=== PATIENT | female | born 1975 | race Caucasian/White ===

== ENCOUNTER 2017-07-08 11:15 | Outpatient (RCR) | payer SELFPAY ==
--- NOTE | 2017-04-15 10:38 | PT INITIAL EVALUATION ---
MEDICAL DIAGNOSIS: Right Breast Cancer TREATMENT DIAGNOSIS: Right Breast Cancer DATE OF ONSET: 02/19/17 SUBJECTIVE: Nahum is a 41 year old female presenting with a recent diagnosis of multifocal invasive ductal carcinoma of the right breast, ER/AL positive. Pt is to start chemotherapy treatment today consisting of 4 rounds of Doxorubicin, Cytoxan and Neulasta which will take place every other week and then progress to weekly Taxol treatment. Pt lives in [place], [place] and will be traveling for treatment. Patient is single, recently . She has children ages 24, 21, and 8. 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 Currently pt is very active and works out regularly and has no complaints of pain or fatigue other than slight tightness surrounding recent port placement on 04/09/17. Pt is accompanied by her mother throughout evaluation , nurse practitioner and social work are also present for patient education. REHAB PROBLEM LIST: Increased Pain Decreased ROM Decreased Function Decreased ADL's Decreased Mobility PREVIOUS MEDICAL HISTORY: See EMR OBJECTIVE: ROM: UE ROM: Full with stiffness in L shoulder flexion end range secondary to recent port placement. Strength: UE MMT B: 5/5 in all major muscle groups 3 Finger Pinch Tip Mender: L 18#, R 20# Sensation: No reports of numbness or tingling, sensation intact to light touch. Special Tests: ECOG Performance Status: Grade 0 FACT-G Scores: 04/15/17 Eval: PWB: 28/28, SWB: 22/, EWB: , FWB:, Total Score: 88/108. ASSESSMENT: Pt shows signs and symptoms consistent with her recent diagnosis with minimal limitations secondary to recent port placement in ROM and stiffness. Physical therapy is indicated for this patient to maintain functional status throughout treatment to decrease side effects of ongoing oncological intervention and monitor for any change in status. Short Term Goals In 3 months pt will maintain FACT-G score of greater than 80/108 indicating maintenance of functional well-being. In 3 months pt will maintain ECOG performance status of 0 indicating maintenance of function and activity level. In 3 months pt will maintain UE ROM and strength to full ROM and MMT >4/5 for maintenance of functional status for performance of ADL's. In 6 months pt will maintain FACT-G score of greater than 80/108 indicating maintenance of functional well-being. In 6 months pt will maintain ECOG performance status of 0 indicating maintenance of function and activity level. In 6 months pt will maintain UE ROM and strength to full ROM and MMT >4/5 for maintenance of functional status for performance of ADL's. Patient's Goals Maintain function with ongoing oncological treatment PLAN: Patient to be seen for Manual Therapy/STM/MET Strengthening/condition Ice/Heat Range of Motion Spinal Stabilization Ultrasound Stretching Iontophoresis Neuromuscular Re-ed Closed Chain Program Electrical Stim Posture/Body mechanics Gait Trg/Balance Trg Biofeedback Home Exercise Program [facility]Manual Traction Therapeutic Activities Pelvic Floor 1/MO for 6 Months If you have any questions, comments, or concerns about this report or plan, please contact me at . Thank you, Starla Hale, PT, DPT, CLT MTDD
--- NOTE | 2017-05-13 18:12 | PT PLAN OF CARE ---
Physician: JUAN Mccracken Patient is being seen: 1x/MO Therapist: Starla Hale, PT, DPT, CLT Medical Diagnosis: Right Breast Cancer Treatment Diagnosis: Right Breast Cancer Date of Onset: 02/19/17 Date of Initial Evaluation: 04/15/17 Date patient was last seen: 05/13/17 Number of treatments: 2 Number of cancellations/No shows: 0 INTERVENTIONS: Manual Therapy/STM/MET Strengthening/condition Ice/Heat Range of Motion Spinal Stabilization Ultrasound Stretching Iontophoresis Neuromuscular Re-ed Closed Chain Program Electrical Stim Posture/Body mechanics Gait Trg/Balance Trg Biofeedback Home Exercise Program Mech./Manual Traction Therapeutic Activities Pelvic Floor GOALS: In 3 months pt will maintain FACT-G score of greater than 80/108 indicating maintenance of functional well-being. In 3 months pt will maintain ECOG performance status of 0 indicating maintenance of function and activity level. In 3 months pt will maintain UE ROM and strength to full ROM and MMT >4/5 for maintenance of functional status for performance of ADL's. In 6 months pt will maintain FACT-G score of greater than 80/108 indicating maintenance of functional well-being. In 6 months pt will maintain ECOG performance status of 0 indicating maintenance of function and activity level. In 6 months pt will maintain UE ROM and strength to full ROM and MMT >4/5 for maintenance of functional status for performance of ADL's. PATIENT'S GOAL: Maintain function with ongoing oncological treatment Status of Patient's Goals: In Progress Patient Compliance: Good Prognosis: Good Reasons for continuing therapy: Pt shows good maintenance of condition with oncological treatment. Occasional lower cervical/upper thoracic pain is present secondary likely to decreased postural support. Pt showed improvements following cervical stretches and scapular squeezes. If pain persists pt to be further evaluated. Otherwise pt shows improved general well-being with side- effects including only decreased sleep as well as nausea. ROM: UE ROM: Full with stiffness in L shoulder flexion end range secondary to recent port placement. Strength: UE MMT B: 5/5 in all major muscle groups 3 Finger Pinch Cable Former: L 18#, R 20# Special Tests: ECOG Performance Status: Grade 0 FACT-G Scores: 04/15/17 Eval: PWB: 28/28, SWB: 22/, EWB: 18, FWB:20, Total Score: 88/108. FACT- G Scores: 05/13/17: PWB: , SWB: , EWB: , FWB:, Total Score: 90/108. If you have any questions or concerns, please feel free to contact me at . Thank you, Starla Hale, PT, DPT, CLT MTDD
--- NOTE | 2017-06-10 11:53 | PT PLAN OF CARE ---
Physician: JUAN Mccracken Patient is being seen: 1x/MO Therapist: Starla Hale, PT, DPT, CLT Medical Diagnosis: Right Breast Cancer Treatment Diagnosis: Right Breast Cancer Date of Onset: 02/19/17 Date of Initial Evaluation: 04/15/17 Date patient was last seen: 06/10/17 Number of treatments: 3 Number of cancellations/No shows: 0 INTERVENTIONS: Manual Therapy/STM/MET Strengthening/condition Ice/Heat Range of Motion Spinal Stabilization Ultrasound Stretching Iontophoresis Neuromuscular Re-ed Closed Chain Program Electrical Stim Posture/Body mechanics Gait Trg/Balance Trg Biofeedback Home Exercise Program Mech./Manual Traction Therapeutic Activities Pelvic Floor GOALS: In 3 months pt will maintain FACT-G score of greater than 80/108 indicating maintenance of functional well-being. MET In 3 months pt will maintain ECOG performance status of 0 indicating maintenance of function and activity level. MET In 3 months pt will maintain UE ROM and strength to full ROM and MMT >4/5 for maintenance of functional status for performance of ADL's. In 6 months pt will maintain FACT-G score of greater than 80/108 indicating maintenance of functional well-being. In 6 months pt will maintain ECOG performance status of 0 indicating maintenance of function and activity level. In 6 months pt will maintain UE ROM and strength to full ROM and MMT >4/5 for maintenance of functional status for performance of ADL's. PATIENT'S GOAL: Maintain function with ongoing oncological treatment Status of Patient's Goals: In Progress Patient Compliance: Good Prognosis: Good Reasons for continuing therapy: Pt shows good maintenance of function with ongoing oncological treatment with minimal side-effects and good activity level. Pt started on preventative neuropathy HEP with initiation of Taxol chemo drug to counteract side-effects. Pt to continue with current level of exercise and be re-evaluated in 1 MO. ROM: UE ROM: Full with stiffness in L shoulder flexion end range secondary to recent port placement. Strength: UE MMT B: 5/5 in all major muscle groups 3 Finger Pinch C[employer] Boat [employer] Barge Loader: L 18#, R 20# Special Tests: ECOG Performance Status: Grade 0 FACT-G Scores: 04/15/17 Eval: PWB: 28, SWB: , EWB: 18, FWB:, Total Score: 88/108. FACT- G Scores: 05/13/17: PWB: , SWB: , EWB: , FWB:, Total Score: 90/108. FACT- G Scores: 06/10/17: PWB: , SWB: , EWB: , FWB:, Total Score: 86/108. If you have any questions or concerns, please feel free to contact me at . Thank you, Starla Hale, PT, DPT, CLT MTDD
[~2017-07-08 11:15] MED LIST: DEX4 PO; DOCU-416 PO; OXYC-865 PO; POLY17PO25 PO; PROC10TA4 PO
--- NOTE | 2017-07-09 08:52 | PT PLAN OF CARE ---
Physician: JUAN Mccracken Patient is being seen: 1x/MO Therapist: Starla Hale, PT, DPT, CLT Medical Diagnosis: Right Breast Cancer Treatment Diagnosis: Right Breast Cancer Date of Onset: 02/19/17 Date of Initial Evaluation: 04/15/17 Date patient was last seen: 07/08/17 Number of treatments: 4 Number of cancellations/No shows: 0 INTERVENTIONS: Manual Therapy/STM/MET Strengthening/condition Ice/Heat Range of Motion Spinal Stabilization Ultrasound Stretching Iontophoresis Neuromuscular Re-ed Closed Chain Program Electrical Stim Posture/Body mechanics Gait Trg/Balance Trg Biofeedback Home Exercise Program Mech./Manual Traction Therapeutic Activities Pelvic Floor GOALS: In 3 months pt will maintain FACT-G score of greater than 80/108 indicating maintenance of functional well-being. MET In 3 months pt will maintain ECOG performance status of 0 indicating maintenance of function and activity level. MET In 3 months pt will maintain UE ROM and strength to full ROM and MMT >4/5 for maintenance of functional status for performance of ADL's. MET In 6 months pt will maintain FACT-G score of greater than 80/108 indicating maintenance of functional well-being. In 6 months pt will maintain ECOG performance status of 0 indicating maintenance of function and activity level. In 6 months pt will maintain UE ROM and strength to full ROM and MMT >4/5 for maintenance of functional status for performance of ADL's. PATIENT'S GOAL: Maintain function with ongoing oncological treatment Status of Patient's Goals: In Progress Patient Compliance: Good Prognosis: Good Reasons for continuing therapy: Pt shows exceptional decrease in both social well-being scores warranting referral to social work for management of social support as well as to MD for education concerning anxiety about upcoming mastectomy. Functionally pt shows improvements with decreased neuropathy to only occasional sensation disturbances in the R hand. Pt has decreased pinch hydraulic tester strength but results could be skewed secondary to pt recently taking Benadryl medication and was drowsy. ROM: UE ROM: Full with stiffness in L shoulder flexion end range secondary to recent port placement. Strength: UE MMT B: 5/5 in all major muscle groups 3 Finger Pinch Managed Services Consultant: EVAL: L 18#, R 20#, 07/08/17: R 15#, 16# Special Tests: ECOG Performance Status: Grade 0 FACT-G Scores: 04/15/17 Eval: PWB: 28/28, SWB: , EWB: , FWB:, Total Score: 88/108. FACT- G Scores: 05/13/17: PWB: /, SWB: , EWB: , FWB:, Total Score: 90/108. FACT- G Scores: 06/10/17: PWB: , SWB: , EWB: , FWB:, Total Score: 86/108. FACT-G Scores: 07/08/17: PWB: /, SWB: , EWB: , FWB:, Total Score: 78/108. If you have any questions or concerns, please feel free to contact me at [phone]. Thank you, Starla Hale, PT, DPT, CLT HUGOD
== END 2017-07-14 ==
LOC: PT 11:15
PROVIDERS: ATTEND Nurse Practitioner Family
DX: D05.11 Intraductal carcinoma in situ of right breast (principal); Z17.0 Estrogen receptor positive status [ER+]
CPT/HCPCS: 97161

== ENCOUNTER 2017-07-29 10:45 | Outpatient (RCR) | payer BC, MEDICAID ==
--- NOTE | 2017-07-29 15:23 | PT PLAN OF CARE ---
Physician: JUAN Mccracken Patient is being seen: 2x/MO Therapist: Starla Hale, PT, DPT, CLT Medical Diagnosis: Right Breast Cancer Treatment Diagnosis: Right Breast Cancer Date of Onset: 02/19/17 Date of Initial Evaluation: 04/15/17 Date patient was last seen: 07/29/17 Number of treatments: 5 Number of cancellations/No shows: 0 INTERVENTIONS: Manual Therapy/STM/MET Strengthening/condition Ice/Heat Range of Motion Spinal Stabilization Ultrasound Stretching Iontophoresis Neuromuscular Re-ed Closed Chain Program Electrical Stim Posture/Body mechanics Gait Trg/Balance Trg Biofeedback Home Exercise Program Mech./Manual Traction Therapeutic Activities Pelvic Floor GOALS: In 3 months pt will maintain FACT-G score of greater than 80/108 indicating maintenance of functional well-being. MET In 3 months pt will maintain ECOG performance status of 0 indicating maintenance of function and activity level. MET In 3 months pt will maintain UE ROM and strength to full ROM and MMT >4/5 for maintenance of functional status for performance of ADL's. MET In 6 months pt will maintain FACT-G score of greater than 80/108 indicating maintenance of functional well-being. In 6 months pt will maintain ECOG performance status of 0 indicating maintenance of function and activity level. In 6 months pt will maintain UE ROM and strength to full ROM and MMT >4/5 for maintenance of functional status for performance of ADL's. PATIENT'S GOAL: Maintain function with ongoing oncological treatment Status of Patient's Goals: In Progress Patient Compliance: Good Prognosis: Good Reasons for continuing therapy: Pt has LUQ abdominal pain with rebound tenderness with palpation. Nurse practitioner notified and is already seeking course of action. Otherwise pt shows good maintenance of physical condition and is staying active with functional and occupational activities. Pt has no pain other than abdominal at this time and is managing fatigue. ROM: UE ROM: Full with stiffness in L shoulder flexion end range secondary to recent port placement. Strength: UE MMT B: 5/5 in all major muscle groups 3 Finger Pinch Access Tech: EVAL: L 18#, R 20#, 07/08/17: R 15#, 16# Special Tests: ECOG Performance Status: Grade 0 FACT-G Scores: 04/15/17 Eval: PWB: , SWB: , EWB: , FWB:, Total Score: 88/108. FACT- G Scores: 05/13/17: PWB: 26/28, SWB: 23/, EWB: , FWB:, Total Score: 90/108. FACT- G Scores: 06/10/17: PWB: 21/28, SWB: 26/, EWB: , FWB:, Total Score: 86/108. FACT-G Scores: 07/08/17: PWB: 22/28, SWB: 16, EWB: , FWB:, Total Score: 78/108. If you have any questions or concerns, please feel free to contact me at . Thank you, Starla Hale, PT, DPT, CLT HUGOD
[2017-08-19] MEDS ORDERED: ACET500T68 PO (11:20)
--- NOTE | 2017-08-20 09:23 | PT PLAN OF CARE ---
Physician: JUAN Mccracken Patient is being seen: 1-2x/MO Therapist: Starla Hale, PT, DPT, CLT Medical Diagnosis: Right Breast Cancer Treatment Diagnosis: Right Breast Cancer Date of Onset: 02/19/17 Date of Initial Evaluation: 04/15/17 Date patient was last seen: 08/19/17 Number of treatments: 6 Number of cancellations/No shows: 0 INTERVENTIONS: Manual Therapy/STM/MET Strengthening/condition Ice/Heat Range of Motion Spinal Stabilization Ultrasound Stretching Iontophoresis Neuromuscular Re-ed Closed Chain Program Electrical Stim Posture/Body mechanics Gait Trg/Balance Trg Biofeedback Home Exercise Program Mech./Manual Traction Therapeutic Activities Pelvic Floor GOALS: In 3 months pt will maintain FACT-G score of greater than 80/108 indicating maintenance of functional well-being. MET In 3 months pt will maintain ECOG performance status of 0 indicating maintenance of function and activity level. MET In 3 months pt will maintain UE ROM and strength to full ROM and MMT >4/5 for maintenance of functional status for performance of ADL's. MET In 6 months pt will maintain FACT-G score of greater than 80/108 indicating maintenance of functional well-being. In 6 months pt will maintain ECOG performance status of 0 indicating maintenance of function and activity level. In 6 months pt will maintain UE ROM and strength to full ROM and MMT >4/5 for maintenance of functional status for performance of ADL's. PATIENT'S GOAL: Maintain function with ongoing oncological treatment Status of Patient's Goals: In Progress Patient Compliance: Good Prognosis: Good Reasons for continuing therapy: Nahum reports decreased LUQ pain and think it is likely indigestion. Otherwise, pt shows good maintenance of status. Pt is still working, but reports fatigue and generalized weakness with ADL's. Next chemo round it to be her last and re-measurements of ROM will be made as well as further radiation and surgical education to be provided prior to a shift in treatment intervention. ROM: UE ROM: Full with stiffness in L shoulder flexion end range secondary to recent port placement. Strength: UE MMT B: 5/5 in all major muscle groups 3 Finger Pinch Clinical Professor: EVAL: L 18#, R 20#, 07/08/17: R 15#, 16# Special Tests: ECOG Performance Status: Grade 0 FACT-G Scores: 04/15/17 Eval: PWB: 28/28, SWB: , EWB: , FWB:, Total Score: 88/108. FACT- G Scores: 05/13/17: PWB: /28, SWB: , EWB: , FWB:, Total Score: 90/108. FACT- G Scores: 06/10/17: PWB: , SWB: , EWB: , FWB:, Total Score: 86/108. FACT-G Scores: 07/08/17: PWB: , SWB: , EWB: , FWB:, Total Score: 78/108. FACT-G Scores: 08/19/17: PWB: , SWB: , EWB: , FWB:, Total Score: 78/108. If you have any questions or concerns, please feel free to contact me at [phone]. Thank you, Starla Hale, PT, DPT, CLT MTDD
[2017-08-26] MEDS ORDERED: CEPH500T7 PO (11:37)
[2017-09-09] MEDS ORDERED: LIDO15CR8 TOP (14:18)
[2017-09-14] MEDS ORDERED: GUAI1TAB25 PO (08:30)
[2017-09-18] MEDS ORDERED: PER PO (08:38)
[2017-09-18] MEDS ORDERED: DOCU-202 PO (08:38)
[2017-10-28] MEDS ORDERED: ACET-1966 PO (12:57)
== END 2017-10-27 ==
LOC: PT 10:45
PROVIDERS: ATTEND Internal Medicine Hematology
DX: C50.911 Malignant neoplasm of unspecified site of right female breast (principal); R10.12 Left upper quadrant pain; R53.83 Other fatigue

== ENCOUNTER 2017-08-26 10:01 | Outpatient (RCR) | payer MEDICAID ==
[2017-06-17] MEDS: diphenhydrAMINE 50 MG/ML VIAL IVP PRN (10:08)
[2017-06-17] MEDS: DEXAMETHASONE SOD PHOS 10MG/ML IVP PRN ×2 (10:08→10:12)
[2017-06-17] MEDS: LIDOCAINE/SOD BICARB 8.4% SYR ID PRN (10:10)
[2017-06-17] MEDS: NS(*) 0.9% 500 ML BAG 500 ML IV PRN (10:12)
[2017-06-17] MEDS: FAMOTIDINE 10 MG/ML SDV IVP PRN (10:42)
--- NOTE | 2017-06-17 11:50 | ONC Progress Note - NP.Halsey ---
Patient History Date of Service Jun 17, 2017 Reason For Visit/HPI Patient is seen in the clinic today for cycle 2 of Taxol out of 12 weekly treatments. Patient reports that she had some mild skin reaction on her hands bilaterally post a 1st treatment with a redness and irritation over the thumb. This also felt warm. This resolved after about 2 days. She denies any numbness or tingling. She is currently on vitamin B6 100 mg twice a day. She denied any nausea or vomiting, diarrhea or constipation. Problem List (1) Breast cancer, right Oncology History 1. 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 a. Initial breast imaging in [place], [place] for palpable lump in right breast. b. Bilateral diagnostic mammogram and whole right breast ultrasound performed on February 19. Mammogram shows scattered fibroglandular tissue in multiple groups of suspicious microcalcifications involving the entire upper/outer quadrant of the right breast. Ultrasound of the right breast reveals, amongst other findings, a lobular, solid, vascular mass measuring about 4 cm from the nipple with multiple punctate echogenic foci consistent with calcifications. This finding was highly suspicious for malignancy. Also, 3 cm from the nipple at 10 o'clock there was a complex solid nodule. At 11 o'clock, about 1 cm from the nipple there was a lobular vascular oval mass. c. March 01: Breast MRI reveals areas of ductal enhancement consistent with adenosis of the left breast as well as multiple benign cystic lesions. There was extensive involvement of the right breast from approximately 8 to 11 o' clock with suspicious enhancement highly suggestive of diffuse malignancy. This area extended from the chest wall to the retroareolar region. There was no evidence of adenopathy in the axillary regions. There was contrast enhancement extending to the chest wall, but no definitive chest wall invasion as detected. d. February 27: Patient subsequently undergoes biopsies of two separate areas of the right breast. First biopsy consistent with invasive ductal carcinoma, moderately or poorly differentiated (grade 3/3), 3 mm in greatest dimension with extensive intermediate grade DCIS, solid type with necrosis and microcalcification. 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 e. March 23: Bone scan reveals relatively diffuse sternal and manubrial localization that is likely reactive or inflammatory in nature; no definite osseous metastatic pattern. f. February 20: CT scan of chest, abdomen and pelvis reveals at least four noncalcified pulmonary nodules seen in the lungs, with largest measuring 6 mm in diameter. Possible noncalcified granulomas; there are small calcified mediastinal lymph nodes. Right breast masses were noted consistent with her history of breast cancer. 8 mm round hypoattenuating lesion in the medial segment of the left lobe of the liver which is too small to characterize. Sclerosis along left-sided L5 vertebral body which could be degenerative, as a mildly bulging disk was present at this level. Adriamycin and Cytoxan started on 04/15/2017 and completed on 05/27/2017 4 scheduled cycles. Weekly Taxol therapy 12 started on 06/10/2017 followed by surgery and possibly radiation therapy. BRCA1 and 2 genetic testing was completed and was negative. Psychosocial History Social History Patient is single but has a significant other. She has 1 daughter who has a child and a son who is an elementary school Occupational History She works at a local [employer] Alcohol History She denies abuse Smoking History: No Smoking Status: Never Smoker Exposure to Second Hand Smoke?: No Medications and Allergies Active Scripts Dexamethasone 4 Mg Tab (DEXAMETHASONE 4 MG TAB) 4 Mg Tab, 8 MG PO DAILY for Nausea for 3 Days, #6 TAB 3 Refills take 8mg on days 2-4 post each cycle of chemotherapy every 2 weeks Prov:TRAVON WHITE INSPECTOR W[employer] ROPE-BC, ONC 04/15/17 Prochlorperazine Maleate (Compazine) 10 Mg Tablet, 10 MG PO Q6H for Nausea, #15 TAB 1 Refill Prov:TRAVON WHITE INSPECTOR [employer]BC, ONC 04/15/17 Docusate Sodium (COLACE) 100 Mg Capsule, 1 CAP PO BID, #30 CAP 0 Refills TAKE WITH A FULL GLASS OF WATER Prov:JOHANNE ARRIAGA MD 04/09/17 Oxycodone Hcl/Acetaminophen (PERCOCET 5-325 MG TABLET) 1 Each Tablet, 1-2 TAB PO Q4H Y for PAIN, #20 TAB 0 Refills Prov:JOHANNE ARRIAGA MD 04/09/17 Allergies: Coded Allergies: No Known Drug Allergies (Unverified , 04/08/17) Review of System/Physical Exam Review of Systems All Systems Reviewed/Normal: Yes, Except as Noted Constitutional: Positive for Other (hair loss) Hematologic: Positive for Fatigue Skin: Positive for Erythema (of the thumbs bilaterally), Positive for Dry Skin Physical Exam Vital Signs Temperature: 98.6 Pulse: 53 BP Systolic: 120 BP Diastolic: 72 Respiratory Rate: 16 O2 SAT: 97 O2 Delivery: Height (inches) 64.00 Weight lb: Weight oz: Weight Kg (Antonino): Pain: 0 ECOG Score: 0 General: Stable, Well Developed, Well Nourished, Not In Acute Distress Neck: Supple Lungs: Clear to Auscultation Heart: Regular Rate, Regular Rhythm, No Gallops Abdomen: Soft and Nontender, No Hepatosplenomegaly Extremities: No Cyanosis, No Clubbing, No Edema Lymphadenopathy: No Cervical Psychiatric: Mood appears normal, Affect appears normal Skin: Mild Erythema (bilateral thumbs with dryness of the skin, no signs or symptoms of infection, no nail changes) Diagnostic Studies Diagnostic Studies Laboratory Labs were drawn in [place] and reviewed today with nursing staff. No concerns today Assessment and Plan Assessment & Plan Patient is seen today for her multifocal high grade ER/NM positive invasive ductal carcinoma of the right breast. She completed cycle 4 today of Adriamycin and Cytoxan out of 4 scheduled cycles. Cycle 2 of weekly Taxol therapy today. Patient then will complete surgery and possibly radiation therapy. Patient is tolerating treatment with out difficulty. She did experience mild erythema over the thumbs bilaterally with dry skin. This is resolving. Patient will follow every cycle with the provider. She is having labs completed in [place] and they are faxed to us for review. These include CBC and a CMP. Patient had BRCA1 and 2 genetic testing completed, results were reviewed with patient which were negative. Patient will contact us if she has questions or concerns. Cycle 2 day 1 of single agent Taxol today. Patient will return in one week for cycle 3. I personally spent a total of 20 minutes. Of that 15 minutes was counseling/ coordination of patient's care. See my note above for details. TRAVON WHITE INSPECTOR [employer]-BC, ONC Jun 17, 2017 11:50
[2017-06-17] MEDS: HEPARIN FLSH (PORT) 500 UN/5ML IVP PRN (12:41)
[2017-06-24] MEDS: DEXAMETHASONE SOD PHOS 10MG/ML IVP PRN (10:41)
[2017-06-24] MEDS: diphenhydrAMINE 50 MG/ML VIAL IVP PRN (10:41)
[2017-06-24] MEDS: FAMOTIDINE 10 MG/ML SDV IVP PRN (10:42)
[2017-06-24] MEDS: LIDOCAINE/SOD BICARB 8.4% SYR ID PRN (11:24)
[2017-06-24 12:40] VITALS: BP 118/75
--- NOTE | 2017-06-24 13:14 | ONC Progress Note - NP.Halsey ---
Patient History Date of Service Jun 24, 2017 Reason For Visit/HPI Patient is seen in the clinic today for cycle 3 of Taxol out of 12 weekly treatments. Her skin reaction on her hands bilaterally is improved with the use of lotion. She denies numbness or tingling. No nausea or vomiting. Occasional diarrhea x 1 day with resolution. Fatigue is stable. She has one sore on her lip which is healing. Her daughter and granddaughter are with her today. She would like to see for a wig. Oncology History 1. Multifocal invasive ductal carcinoma of the right breast, ER/DE positive. a. Initial breast imaging in [place], [place] for palpable lump in right breast. b. Bilateral diagnostic mammogram and whole right breast ultrasound performed on February 19. Mammogram shows scattered fibroglandular tissue in multiple groups of suspicious microcalcifications involving the entire upper/outer quadrant of the right breast. Ultrasound of the right breast reveals, amongst other findings, a lobular, solid, vascular mass measuring about 4 cm from the nipple with multiple punctate echogenic foci consistent with calcifications. This finding was highly suspicious for malignancy. Also, 3 cm from the nipple at 10 o'clock there was a complex solid nodule. At 11 o'clock, about 1 cm from the nipple there was a lobular vascular oval mass. c. March 01: Breast MRI reveals areas of ductal enhancement consistent with adenosis of the left breast as well as multiple benign cystic lesions. There was extensive involvement of the right breast from approximately 8 to 11 o' clock with suspicious enhancement highly suggestive of diffuse malignancy. This area extended from the chest wall to the retroareolar region. There was no evidence of adenopathy in the axillary regions. There was contrast enhancement extending to the chest wall, but no definitive chest wall invasion as detected. d. February 27: Patient subsequently undergoes biopsies of two separate areas of the right breast. First biopsy consistent with invasive ductal carcinoma, moderately or poorly differentiated (grade 3/3), 3 mm in greatest dimension with extensive intermediate grade DCIS, solid type with necrosis and microcalcification. 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 e. March 23: Bone scan reveals relatively diffuse sternal and manubrial localization that is likely reactive or inflammatory in nature; no definite osseous metastatic pattern. f. February 20: CT scan of chest, abdomen and pelvis reveals at least four noncalcified pulmonary nodules seen in the lungs, with largest measuring 6 mm in diameter. Possible noncalcified granulomas; there are small calcified mediastinal lymph nodes. Right breast masses were noted consistent with her history of breast cancer. 8 mm round hypoattenuating lesion in the medial segment of the left lobe of the liver which is too small to characterize. Sclerosis along left-sided L5 vertebral body which could be degenerative, as a mildly bulging disk was present at this level. Adriamycin and Cytoxan started on 04/15/2017 and completed on 05/27/2017 4 scheduled cycles. Weekly Taxol therapy 12 started on 06/10/2017 followed by surgery and possibly radiation therapy. BRCA1 and 2 genetic testing was completed and was negative. Psychosocial History Social History Patient is single but has a significant other. She has 1 daughter who has a child and a son who is an elementary school Occupational History She works at a local [employer] Alcohol History She denies abuse Smoking History: No Smoking Status: Never Smoker Exposure to Second Hand Smoke?: No Medications and Allergies Active Scripts Dexamethasone 4 Mg Tab (DEXAMETHASONE 4 MG TAB) 4 Mg Tab, 8 MG PO DAILY for Nausea for 3 Days, #6 TAB 3 Refills take 8mg on days 2-4 post each cycle of chemotherapy every 2 weeks Prov:TRAVON WHITE DEGREASER-BC, ONC 04/15/17 Prochlorperazine Maleate (Compazine) 10 Mg Tablet, 10 MG PO Q6H for Nausea, #15 TAB 1 Refill Prov:TRAVON WHITE DEGREASER-BC, ONC 04/15/17 Docusate Sodium (COLACE) 100 Mg Capsule, 1 CAP PO BID, #30 CAP 0 Refills TAKE WITH A FULL GLASS OF WATER Prov:JOHANNE ARRIAGA MD 04/09/17 Oxycodone Hcl/Acetaminophen (PERCOCET 5-325 MG TABLET) 1 Each Tablet, 1-2 TAB PO Q4H Y for PAIN, #20 TAB 0 Refills Prov:JOHANNE ARRIAGA MD 04/09/17 Allergies: Coded Allergies: No Known Drug Allergies (Unverified , 04/08/17) Review of System/Physical Exam Review of Systems All Systems Reviewed/Normal: Yes, Except as Noted Hematologic: Positive for Fatigue Skin: Positive for Erythema (of the thumbs bilaterally improved), Positive for Dry Skin (using lotion with improvement) Physical Exam Vital Signs Temperature: 97.9 Pulse: 75 BP Systolic: 118 BP Diastolic: 75 Respiratory Rate: 16 O2 SAT: 96 O2 Delivery: Height (inches) 64.00 Weight lb: Weight oz: Weight Kg (Antonino): Pain: 0 ECOG Score: 0 General: Well Developed, Well Nourished, Not In Acute Distress HEENT: No Trauma, No Conjunctivitis, No Icterus, No Mucositis, No Oral Thrush, Other (scam on lower lip) Neck: Supple Lungs: Clear to Auscultation Heart: Regular Rate, Regular Rhythm, No Gallops Abdomen: Soft and Nontender, No Hepatosplenomegaly, No Masses Extremities: No Cyanosis, No Clubbing, No Edema Lymphadenopathy: No Cervical Psychiatric: Mood appears normal, Affect appears normal Skin: No Skin Rashes, No Bruising, Mild Erythema (bilateral thumbs with dryness of the skin, no signs or symptoms of infection, no nail changes) Diagnostic Studies Diagnostic Studies Laboratory Labs reviewed yesterday and within limits for treatment.- See SPU chart Assessment and Plan Assessment & Plan Patient is seen today for her multifocal high grade ER/DE positive invasive ductal carcinoma of the right breast. She completed cycle 4 today of Adriamycin and Cytoxan out of 4 scheduled cycles. Cycle 3 of weekly Taxol therapy today. Patient then will complete surgery and possibly radiation therapy. Patient is tolerating treatment with out difficulty. She did experience mild erythema over the thumbs bilaterally with dry skin and has improvement with lotion use. Patient will follow every cycle with the provider. She is having labs completed in [place] and they are faxed to us for review. These include CBC and a CMP. Patient had BRCA1 and 2 genetic testing completed, results were reviewed with patient which were negative. PLAN: Patient will contact us if she has questions or concerns. Cycle 3 day 1 of single agent Taxol today. Patient will return in one week for cycle 4. I personally spent a total of 20 minutes. Of that 15 minutes was counseling/ coordination of patient's care. See my note above for details. TRAVON WHITE DEGREASER-BC, ONC Jun 24, 2017 13:14
[2017-06-24] MEDS: NS(*) 0.9% 500 ML BAG 500 ML IV PRN (15:55)
[2017-06-24] MEDS: HEPARIN FLSH (PORT) 500 UN/5ML IVP PRN (15:56)
[2017-07-01] MEDS: NS(*) 0.9% 500 ML BAG 500 ML IV PRN (10:21)
[2017-07-01] MEDS: LIDOCAINE/SOD BICARB 8.4% SYR ID PRN (10:21)
[2017-07-01 10:22] VITALS: BP 121/62
[2017-07-01] MEDS: FAMOTIDINE 10 MG/ML SDV IVP PRN (10:55)
[2017-07-01] MEDS: DEXAMETHASONE SOD PHOS 10MG/ML IVP PRN (10:56)
[2017-07-01] MEDS: diphenhydrAMINE 50 MG/ML VIAL IVP PRN (11:02)
--- NOTE | 2017-07-01 11:02 | ONC Progress Note - NP.Halsey ---
Patient History Date of Service Jul 01, 2017 Reason For Visit/HPI Patient is seen in the clinic today for cycle 4 of Taxol out of 12 weekly treatments. She reports having a cough without expectation, fever or chills and overall feels very well. She is using a cough syrup and cough drops as needed. She notices that it increases when she lays flat and slightly improves when she is sitting up. It comes and goes. She denies any rash or skin changes today which she had previous. Problem List (1) Breast cancer, right Oncology History 1. 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 a. Initial breast imaging in [place], [place] for palpable lump in right breast. b. Bilateral diagnostic mammogram and whole right breast ultrasound performed on February 19. Mammogram shows scattered fibroglandular tissue in multiple groups of suspicious microcalcifications involving the entire upper/outer quadrant of the right breast. Ultrasound of the right breast reveals, amongst other findings, a lobular, solid, vascular mass measuring about 4 cm from the nipple with multiple punctate echogenic foci consistent with calcifications. This finding was highly suspicious for malignancy. Also, 3 cm from the nipple at 10 o'clock there was a complex solid nodule. At 11 o'clock, about 1 cm from the nipple there was a lobular vascular oval mass. c. March 01: Breast MRI reveals areas of ductal enhancement consistent with adenosis of the left breast as well as multiple benign cystic lesions. There was extensive involvement of the right breast from approximately 8 to 11 o' clock with suspicious enhancement highly suggestive of diffuse malignancy. This area extended from the chest wall to the retroareolar region. There was no evidence of adenopathy in the axillary regions. There was contrast enhancement extending to the chest wall, but no definitive chest wall invasion as detected. d. February 27: Patient subsequently undergoes biopsies of two separate areas of the right breast. First biopsy consistent with invasive ductal carcinoma, moderately or poorly differentiated (grade 3/3), 3 mm in greatest dimension with extensive intermediate grade DCIS, solid type with necrosis and microcalcification. 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 e. March 23: Bone scan reveals relatively diffuse sternal and manubrial localization that is likely reactive or inflammatory in nature; no definite osseous metastatic pattern. f. February 20: CT scan of chest, abdomen and pelvis reveals at least four noncalcified pulmonary nodules seen in the lungs, with largest measuring 6 mm in diameter. Possible noncalcified granulomas; there are small calcified mediastinal lymph nodes. Right breast masses were noted consistent with her history of breast cancer. 8 mm round hypoattenuating lesion in the medial segment of the left lobe of the liver which is too small to characterize. Sclerosis along left-sided L5 vertebral body which could be degenerative, as a mildly bulging disk was present at this level. Adriamycin and Cytoxan started on 04/15/2017 and completed on 05/27/2017 4 scheduled cycles. Weekly Taxol therapy 12 started on 06/10/2017 followed by surgery and possibly radiation therapy. BRCA1 and 2 genetic testing was completed and was negative. Psychosocial History Social History Patient is single but has a significant other. She has 1 daughter who has a child and a son who is an elementary school Occupational History She works at a local [employer] Alcohol History She denies abuse Smoking History: No Smoking Status: Never Smoker Exposure to Second Hand Smoke?: No Medications and Allergies Active Scripts Prochlorperazine Maleate (Compazine) 10 Mg Tablet, 10 MG PO Q6H for Nausea, #15 TAB 1 Refill Prov:TRAVON WHITE-BC, ONC 04/15/17 Docusate Sodium (COLACE) 100 Mg Capsule, 1 CAP PO BID, #30 CAP 0 Refills TAKE WITH A FULL GLASS OF WATER Prov:JOHANNE ARRIAGA MD 04/09/17 Oxycodone Hcl/Acetaminophen (PERCOCET 5-325 MG TABLET) 1 Each Tablet, 1-2 TAB PO Q4H Y for PAIN, #20 TAB 0 Refills Prov:JOHANNE ARRIAGA MD 04/09/17 Discontinued Scripts Dexamethasone 4 Mg Tab (DEXAMETHASONE 4 MG TAB) 4 Mg Tab, 8 MG PO DAILY for Nausea for 3 Days, #6 TAB 3 Refills take 8mg on days 2-4 post each cycle of chemotherapy every 2 weeks Prov:TRAVON WHITE-BC, ONC 04/15/17 Allergies: Coded Allergies: No Known Drug Allergies (Unverified , 04/08/17) Review of System/Physical Exam Review of Systems All Systems Reviewed/Normal: Yes, Except as Noted Respiratory: Positive for Cough (see above) Hematologic: Positive for Fatigue (mild fatigue) Physical Exam Vital Signs Temperature: 97.8 Pulse: 87 BP Systolic: 121 BP Diastolic: 62 Respiratory Rate: 18 O2 SAT: 94 O2 Delivery: Height (inches) 64.00 Weight lb: 168 Weight oz: Weight Kg (Antonino): [id number] Pain: 0 ECOG Score: 0 General: Stable, Well Developed, Well Nourished, Not In Acute Distress HEENT: No Trauma, No Conjunctivitis, No Icterus, No Mucositis, No Oral Thrush Neck: Supple Heart: Regular Rate, Regular Rhythm, No Gallops Abdomen: Soft and Nontender, No Hepatosplenomegaly, No Masses Extremities: No Cyanosis, No Clubbing, No Edema Lymphadenopathy: No Cervical Psychiatric: Mood appears normal, Affect appears normal Skin: No Skin Rashes, No Bruising, Mild Erythema (bilateral thumbs with dryness of the skin, no signs or symptoms of infection, no nail changes) Diagnostic Studies Diagnostic Studies Laboratory CBC drawn on 06/30/2017 shows a white cell count of 7000, hemoglobin of 11.7, hematocrit 35.9, platelet count 400,000 with an absolute neutrophil count of 5058 chemistry panel includes a glucose of 116, creatinine of 0.6 ALT of 70. Assessment and Plan Assessment & Plan Patient is seen today for her multifocal high grade ER/DC positive invasive ductal carcinoma of the right breast. She completed cycle 4 today of Adriamycin and Cytoxan out of 4 scheduled cycles. Cycle 4 of weekly Taxol therapy today. She is tolerating treatment very well. She has developed a cough but reports several people that she knows also have the same similar cough. She denies any fever or chills, no shortness of breath or wheezing. We will continue to monitor. I will discuss completed chest x-ray if symptoms continue. She currently is using cough syrup and cough drops with some relief. Patient then will complete surgery and possibly radiation therapy. Patient is tolerating treatment with out difficulty. She did experience mild erythema over the thumbs bilaterally with dry skin and has improvement with lotion use. Patient will follow every cycle with the provider. She is having labs completed in [place] and they are faxed to us for review. These include CBC and a CMP. Patient had BRCA1 and 2 genetic testing completed, results were reviewed with patient which were negative. PLAN: Patient will contact us if she has questions or concerns. Cycle 4 day 1 of single agent Taxol today. Patient will return in one week for cycle 5. Chest x-ray of cough continues I personally spent a total of 20 minutes. Of that 15 minutes was counseling/ coordination of patient's care. See my note above for details. TRAVON WHITE VICE PRESIDENT REGULATORY-BC, ONC Jul 01, 2017 11:02
[2017-07-01] MEDS: HEPARIN FLSH (PORT) 500 UN/5ML IVP PRN (13:00)
[2017-07-01 14:49] VITALS: BP 124/79
[2017-07-08 10:10] VITALS: BP 137/89
[2017-07-08] MEDS: NS(*) 0.9% 500 ML BAG 500 ML IV PRN (10:16)
[2017-07-08] MEDS: LIDOCAINE/SOD BICARB 8.4% SYR ID PRN (10:16)
[2017-07-08] MEDS: FAMOTIDINE 10 MG/ML SDV IVP PRN (10:33)
[2017-07-08] MEDS: diphenhydrAMINE 50 MG/ML VIAL IVP PRN (10:35)
[2017-07-08] MEDS: DEXAMETHASONE SOD PHOS 10MG/ML IVP PRN (10:36)
[2017-07-08] MEDS: HEPARIN FLSH (PORT) 500 UN/5ML IVP PRN (12:36)
--- NOTE | 2017-07-08 13:09 | ONC Progress Note - NP.Halsey ---
Patient History Date of Service Jul 08, 2017 Reason For Visit/HPI Patient is seen in the clinic today for cycle 5 of Taxol out of 12 weekly treatments. She reports having a dry non-productive cough, occasional episodes of bloody nose discharge and increased emotions today. She is alone today and is feeling lack of support from her family members. She also has questions regarding surgery and her surgical options. She has not met with a surgeon to discuss options. Oncology History 1. Multifocal invasive ductal carcinoma of the right breast, ER/HI positive. a. Initial breast imaging in [place], [place] for palpable lump in right breast. b. Bilateral diagnostic mammogram and whole right breast ultrasound performed on February 19. Mammogram shows scattered fibroglandular tissue in multiple groups of suspicious microcalcifications involving the entire upper/outer quadrant of the right breast. Ultrasound of the right breast reveals, amongst other findings, a lobular, solid, vascular mass measuring about 4 cm from the nipple with multiple punctate echogenic foci consistent with calcifications. This finding was highly suspicious for malignancy. Also, 3 cm from the nipple at 10 o'clock there was a complex solid nodule. At 11 o'clock, about 1 cm from the nipple there was a lobular vascular oval mass. c. March 01: Breast MRI reveals areas of ductal enhancement consistent with adenosis of the left breast as well as multiple benign cystic lesions. There was extensive involvement of the right breast from approximately 8 to 11 o' clock with suspicious enhancement highly suggestive of diffuse malignancy. This area extended from the chest wall to the retroareolar region. There was no evidence of adenopathy in the axillary regions. There was contrast enhancement extending to the chest wall, but no definitive chest wall invasion as detected. d. February 27: Patient subsequently undergoes biopsies of two separate areas of the right breast. First biopsy consistent with invasive ductal carcinoma, moderately or poorly differentiated (grade 3/3), 3 mm in greatest dimension with extensive intermediate grade DCIS, solid type with necrosis and microcalcification. 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 e. March 23: Bone scan reveals relatively diffuse sternal and manubrial localization that is likely reactive or inflammatory in nature; no definite osseous metastatic pattern. f. February 20: CT scan of chest, abdomen and pelvis reveals at least four noncalcified pulmonary nodules seen in the lungs, with largest measuring 6 mm in diameter. Possible noncalcified granulomas; there are small calcified mediastinal lymph nodes. Right breast masses were noted consistent with her history of breast cancer. 8 mm round hypoattenuating lesion in the medial segment of the left lobe of the liver which is too small to characterize. Sclerosis along left-sided L5 vertebral body which could be degenerative, as a mildly bulging disk was present at this level. Adriamycin and Cytoxan started on 04/15/2017 and completed on 05/27/2017 4 scheduled cycles. Weekly Taxol therapy 12 started on 06/10/2017 followed by surgery and possibly radiation therapy. BRCA1 and 2 genetic testing was completed and was negative. Psychosocial History Social History Patient is single but has a significant other. She has 1 daughter who has a child and a son who is an elementary school Occupational History She works at a local [employer] Alcohol History She denies abuse Smoking History: No Smoking Status: Never Smoker Exposure to Second Hand Smoke?: No Medications and Allergies Active Scripts Prochlorperazine Maleate (Compazine) 10 Mg Tablet, 10 MG PO Q6H for Nausea, #15 TAB 1 Refill Prov:TRAVON WHITE-BC, ONC 04/15/17 Docusate Sodium (COLACE) 100 Mg Capsule, 1 CAP PO BID, #30 CAP 0 Refills TAKE WITH A FULL GLASS OF WATER Prov:JOHANNE ARRIAGA MD 04/09/17 Oxycodone Hcl/Acetaminophen (PERCOCET 5-325 MG TABLET) 1 Each Tablet, 1-2 TAB PO Q4H Y for PAIN, #20 TAB 0 Refills Prov:JOHANNE ARRIAGA MD 04/09/17 Discontinued Scripts Dexamethasone 4 Mg Tab (DEXAMETHASONE 4 MG TAB) 4 Mg Tab, 8 MG PO DAILY for Nausea for 3 Days, #6 TAB 3 Refills take 8mg on days 2-4 post each cycle of chemotherapy every 2 weeks Prov:TRAVON WHITE-BC, ONC 04/15/17 Allergies: Coded Allergies: No Known Drug Allergies (Unverified , 04/08/17) Review of System/Physical Exam Review of Systems All Systems Reviewed/Normal: Yes, Except as Noted Respiratory: Positive for Cough (dry ) Hematologic: Positive for Fatigue Psychiatric: Depression (patient is feeling lack of family support and is traveling from [place] to [facility] for treatment) Skin: Positive for Dry Skin (dry skin with erythema over the thumb and first finger.) Physical Exam Vital Signs Temperature: 98.4 Pulse: 74 BP Systolic: 137 BP Diastolic: 89 Respiratory Rate: 18 O2 SAT: 97 O2 Delivery: Height (inches) 64.00 Weight lb: 0 Weight oz: Weight Kg (Antonino): [id number] Pain: 0 ECOG Score: 1 General: Stable, Well Developed, Well Nourished, Not In Acute Distress HEENT: No Trauma, No Icterus, No Mucositis, No Oral Thrush Neck: Supple Lungs: Clear to Auscultation Heart: Regular Rate, Regular Rhythm, No Gallops Abdomen: Soft and Nontender, No Hepatosplenomegaly, No Masses Extremities: No Cyanosis, No Clubbing, No Edema Lymphadenopathy: No Cervical Psychiatric: Mood appears normal, Affect appears normal Skin: No Skin Rashes, No Bruising, Dry Desquamation, Mild Erythema (bilateral thumbs with dryness of the skin, no signs or symptoms of infection, no nail changes) Diagnostic Studies Diagnostic Studies Laboratory Labs drawn in [facility] on 07-23 show white cell count of 5.18, hemoglobin of 11.9, hematocrit of 35.8, and a platelet count of 390,000. Her chemistry panel is completely unremarkable Assessment and Plan Assessment & Plan Patient is seen today for her multifocal high grade ER/HI positive invasive ductal carcinoma of the right breast. She completed Adriamycin and Cytoxan 4/4 scheduled cycles. Cycle 5 of weekly Taxol therapy today. She is tolerating treatment very well. She has a dry cough that is nonproductive and remains relatively stable. She denies any fever or chills, no shortness of breath or wheezing. We will continue to monitor. Patient has increased emotions regarding treatment and upcoming surgery. She has not met with the surgeon to discuss her options and is confused regarding options. I will refer her to Dr. Bellamy to discuss potential options and allow time for referral to plastic surgery if she were to have breast implants. Patient then will complete surgery and possibly radiation therapy. PLAN: Patient will contact us if she has questions or concerns. Cycle 5 day 5 of Taxol today. Patient will return in one week for cycle 6/12 scheduled. Continue with Physical therapy Patient to visit with pediatric social worker regarding her emotions. I personally spent a total of 20 minutes. Of that 15 minutes was counseling/ coordination of patient's care. See my note above for details. TRAVON WHITE CONCRETE POINTER-BC, ONC Jul 08, 2017 13:09
[2017-07-15 09:59] VITALS: BP 72/51
[2017-07-15] MEDS: NS(*) 0.9% 500 ML BAG 500 ML IV PRN (10:04)
[2017-07-15] MEDS: LIDOCAINE/SOD BICARB 8.4% SYR ID PRN (10:05)
[2017-07-15] MEDS: FAMOTIDINE 10 MG/ML SDV IVP PRN (10:19)
[2017-07-15] MEDS: DEXAMETHASONE SOD PHOS 10MG/ML IVP PRN (10:26)
[2017-07-15] MEDS: diphenhydrAMINE 50 MG/ML VIAL IVP PRN (11:18)
[2017-07-15] MEDS: HEPARIN FLSH (PORT) 500 UN/5ML IVP PRN (14:14)
--- NOTE | 2017-07-15 18:44 | ONCOLOGY FOLLOW UP NOTE ---
EVENT DATE: July 15, 2017 REASON FOR FOLLOWUP Multicentric ER/WV positive high grade right breast cancer. INTERIM HISTORY Nahum returns to clinic for a follow-up visit today. She is accompanied by her mother. She reports that from a side effect standpoint, she has been tolerating chemotherapy remarkably well. She does report some very mild tingling in her fingertips on occasion, but none is present today. She denies fevers, chills and sweats. Her appetite is good, her weight has been stable. She denies shortness of breath and productive cough. She has felt occasional fleeting pain in the right breast that lasts for a few seconds and then goes away. Similarly, she has felt occasional fleeting pain in her upper abdomen on both sides that is also fleeting in nature. She has had no diarrhea. She has had no changes in urinary symptoms. For the most part, her energy level has been good. She does report that the past four to six weeks has been pretty stressful, and she has been frustrated with having to come to some of her appointments by herself. She has had some struggles with her loved ones in terms of understanding where she currently sits both physically and emotionally. She has had good support from her coworkers, and she does continue to work. She is here to receive her sixth of 12 planned weekly Taxol infusions. REVIEW OF SYSTEMS Otherwise negative, and all systems were reviewed. ONCOLOGY HISTORY 1. 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 a. Initial breast imaging in [place], [place] for palpable lump in right breast. b. Bilateral diagnostic mammogram and whole right breast ultrasound performed on February 19. Mammogram shows scattered fibroglandular tissue in multiple groups of suspicious microcalcifications involving the entire upper/outer quadrant of the right breast. Ultrasound of the right breast reveals, amongst other findings, a lobular, solid, vascular mass measuring about 4 cm from the nipple with multiple punctate echogenic foci consistent with calcifications. This finding was highly suspicious for malignancy. Also, 3 cm from the nipple at 10 o'clock there was a complex solid nodule. At 11 o'clock, about 1 cm from the nipple there was a lobular vascular oval mass. c. March 01: Breast MRI reveals areas of ductal enhancement consistent with adenosis of the left breast as well as multiple benign cystic lesions. There was extensive involvement of the right breast from approximately 8 to 11 o' clock with suspicious enhancement highly suggestive of diffuse malignancy. This area extended from the chest wall to the retroareolar region. There was no evidence of adenopathy in the axillary regions. There was contrast enhancement extending to the chest wall, but no definitive chest wall invasion as detected. d. February 27: Patient subsequently undergoes biopsies of two separate areas of the right breast. First biopsy consistent with invasive ductal carcinoma, moderately or poorly differentiated (grade 3/3), 3 mm in greatest dimension with extensive intermediate grade DCIS, solid type with necrosis and microcalcification. 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 e. March 23: Bone scan reveals relatively diffuse sternal and manubrial localization that is likely reactive or inflammatory in nature; no definite osseous metastatic pattern. f. February 20: CT scan of chest, abdomen and pelvis reveals at least four noncalcified pulmonary nodules seen in the lungs, with largest measuring 6 mm in diameter. Possible noncalcified granulomas; there are small calcified mediastinal lymph nodes. Right breast masses were noted consistent with her history of breast cancer. 8 mm round hypoattenuating lesion in the medial segment of the left lobe of the liver which is too small to characterize. Sclerosis along left-sided L5 vertebral body which could be degenerative, as a mildly bulging disk was present at this level. g. MRI abdomen reveals that the 8 mm hypoattenuating lesion on CT is consistent with a cyst. h. Oncotype DX testing has returned with a recurrence score of 10. BRCA1 and 2 currently pending. i. Patient is status post dose dense AC. j. Patient continues on weekly Taxol infusions, with plan for a total of 12 weekly infusions. PAST MEDICAL HISTORY Patient is otherwise healthy, with the exception of written history to indicate a possible "hole" in her esophagus in 2009 and 2014. No prior primary care notes are currently available. CURRENT MEDICATIONS 1. Compazine p.r.n. 2. Colace p.r.n. 3. Percocet p.r.n. ALLERGIES No known drug allergies. SOCIAL HISTORY Patient is single, recently . She has children ages 24, 21, and 8. 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 She is a nondrinker and nonsmoker. There is no history of illicit drug use. VITAL SIGNS Temperature 97.8, blood pressure 115/76, heart rate is 82, respirations 16, oxygen saturation is 94% on room air. PHYSICAL EXAMINATION GENERAL: Patient is alert and oriented times three, in no apparent distress sitting in the exam room chair. HEENT: Exam reveals diffuse alopecia. NEUROLOGIC: Exam is grossly normal and her gait is normal. LUNGS: Exam reveals clear lungs bilaterally. HEART: Exam reveals regular rate and rhythm. SKIN: Exam reveals no concerning rash or lesion. EXTREMITIES: Exam reveals no edema, clubbing or cyanosis. LABORATORY Studies are reviewed per the [facility] record. 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 I had a good visit with Nahum and her mother today. We were accompanied for the entirety of today's visit by Mandy Ramos RN. We spent time reviewing her oncologic history, and her experience with chemotherapy to date. From a side effect standpoint, she has been tolerating treatment remarkably well. She has minimal peripheral neuropathy. She has no signs or symptoms to suggest acute infection. We spent the majority of our time today discussing the patient's current mental health. She is emotional today, tearful at times. She has been frustrated with her perceived lack of involvement by some of her family members. She has had good support from work. We discussed methods of communication and ways that the patient can make her symptoms and side effects known, as well as her feelings about ongoing treatment for cancer in general. The patient does not feel like she is depressed, but just emotional. We did discuss the potential role of corticosteroid with her emotional state, as well. We discussed the possibility of trying low dose Effexor perhaps, and the patient would like to give this some thought. For now, we will plan for her to continue with ongoing weekly Taxol infusions to completion. She will follow up with Sahara Jaimes in one week, and I will plan to see her during my next visit to the [facility]. Of note, we did spend some time today discussing whether she would want to consider breast reconstruction as part of her surgical plan. She has been thinking about this quite a bit. I will make a referral to Plastic Surgery for further discussion. I spent a total of 30 minutes of time face to face with the patient and her mother today. Twenty-five minutes of this was spent in direct counseling and coordination of care. SHEA
[2017-07-22] MEDS: LIDOCAINE/SOD BICARB 8.4% SYR ID PRN (10:14)
[2017-07-22 10:15] VITALS: BP 108/63
[2017-07-22] MEDS: NS(*) 0.9% 500 ML BAG 500 ML IV PRN (10:23)
--- NOTE | 2017-07-22 10:30 | ONC Progress Note - NP.Halsey ---
Patient History Date of Service Jul 22, 2017 Reason For Visit/HPI Patient is seen in the clinic today for cycle 7 of Taxol out of 12 weekly treatments. Her mother is with her today. Overall patient reports that she is feeling well and denies any neuropathy in her hands or feet. She does have some fatigue which is increasing with each cycle. She had one episode at work last Thursday where she had significant weakness in her legs. She reports that she had eaten a sampling wedge several hours prior but had not drank much water. She 's had no recurrent symptoms since then. This morning she noticed that she was having bilateral nipple discharge. Fluid was a very small amount and clear. Patient also reports that she had cramping in the abdomen like she was having her menses but has not had any vaginal bleeding. She would be 10 days late from her menses. She denies any way of being and reports that she has had no sexual intercourse. Problem List (1) Breast cancer, right Oncology History 1. Multifocal invasive ductal carcinoma of the right breast, ER/VT positive. a. Initial breast imaging in [place], [place] for palpable lump in right breast. b. Bilateral diagnostic mammogram and whole right breast ultrasound performed on February 19. Mammogram shows scattered fibroglandular tissue in multiple groups of suspicious microcalcifications involving the entire upper/outer quadrant of the right breast. Ultrasound of the right breast reveals, amongst other findings, a lobular, solid, vascular mass measuring about 4 cm from the nipple with multiple punctate echogenic foci consistent with calcifications. This finding was highly suspicious for malignancy. Also, 3 cm from the nipple at 10 o'clock there was a complex solid nodule. At 11 o'clock, about 1 cm from the nipple there was a lobular vascular oval mass. c. March 01: Breast MRI reveals areas of ductal enhancement consistent with adenosis of the left breast as well as multiple benign cystic lesions. There was extensive involvement of the right breast from approximately 8 to 11 o' clock with suspicious enhancement highly suggestive of diffuse malignancy. This area extended from the chest wall to the retroareolar region. There was no evidence of adenopathy in the axillary regions. There was contrast enhancement extending to the chest wall, but no definitive chest wall invasion as detected. d. February 27: Patient subsequently undergoes biopsies of two separate areas of the right breast. First biopsy consistent with invasive ductal carcinoma, moderately or poorly differentiated (grade 3/3), 3 mm in greatest dimension with extensive intermediate grade DCIS, solid type with necrosis and microcalcification. 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 e. March 23: Bone scan reveals relatively diffuse sternal and manubrial localization that is likely reactive or inflammatory in nature; no definite osseous metastatic pattern. f. February 20: CT scan of chest, abdomen and pelvis reveals at least four noncalcified pulmonary nodules seen in the lungs, with largest measuring 6 mm in diameter. Possible noncalcified granulomas; there are small calcified mediastinal lymph nodes. Right breast masses were noted consistent with her history of breast cancer. 8 mm round hypoattenuating lesion in the medial segment of the left lobe of the liver which is too small to characterize. Sclerosis along left-sided L5 vertebral body which could be degenerative, as a mildly bulging disk was present at this level. Adriamycin and Cytoxan started on 04/15/2017 and completed on 05/27/2017 4 scheduled cycles. Weekly Taxol therapy 12 started on 06/10/2017 followed by surgery and possibly radiation therapy. BRCA1 and 2 genetic testing was completed and was negative. Psychosocial History Social History Patient is single but has a significant other. 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 Alcohol History She denies abuse Smoking History: No Smoking Status: Never Smoker Exposure to Second Hand Smoke?: No Medications and Allergies Active Scripts Prochlorperazine Maleate (Compazine) 10 Mg Tablet, 10 MG PO Q6H for Nausea, #15 TAB 1 Refill Prov:TRAVON WHITE TAPE MAKING MACHINE OPERATOR-BC, ONC 04/15/17 Docusate Sodium (COLACE) 100 Mg Capsule, 1 CAP PO BID, #30 CAP 0 Refills TAKE WITH A FULL GLASS OF WATER Prov:JOHANNE ARRIAGA MD 04/09/17 Oxycodone Hcl/Acetaminophen (PERCOCET 5-325 MG TABLET) 1 Each Tablet, 1-2 TAB PO Q4H Y for PAIN, #20 TAB 0 Refills Prov:JOHANNE ARRIAGA MD 04/09/17 Allergies: Coded Allergies: No Known Drug Allergies (Unverified , 04/08/17) Review of System/Physical Exam Review of Systems All Systems Reviewed/Normal: Yes, Except as Noted Hematologic: Positive for Fatigue Skin: Positive for Dry Skin (dry skin with erythema over the thumb and first finger has improved and is almost resolved.) Physical Exam Vital Signs Temperature: 98.0 Pulse: 76 BP Systolic: 108 BP Diastolic: 63 Respiratory Rate: 16 O2 SAT: 96 O2 Delivery: Height (inches) 64.00 Weight lb: 0 Weight oz: Weight Kg (Antonino): [id number] Pain: 0 ECOG Score: 0 General: Stable, Well Developed, Well Nourished, Not In Acute Distress HEENT: No Conjunctivitis, No Mucositis, No Oral Thrush Neck: Supple Lungs: Clear to Auscultation Heart: Regular Rate, Regular Rhythm, No Gallops Abdomen: Soft and Nontender, No Hepatosplenomegaly, No Masses, Other (bowel sounds active) Extremities: No Cyanosis, No Clubbing, No Edema Lymphadenopathy: No Cervical Psychiatric: Mood appears normal, Affect appears normal Skin: No Skin Rashes, No Bruising Diagnostic Studies Diagnostic Studies Laboratory CBC drawn on 07/20/2017 shows a white cell count of 4200, hemoglobin of 11.9, hematocrit 36.7 and a platelet count of 379,000. Absolute neutrophil count is 3300. Her chemistry is unremarkable. Assessment and Plan Assessment & Plan Patient is seen today for her multifocal high grade ER/VT positive invasive ductal carcinoma of the right breast. She completed Adriamycin and Cytoxan 4/4 scheduled cycles. Cycle 7 of weekly Taxol therapy today. She is tolerating treatment very well with expected side effects. The last office visit patient discussed with Dr. Khan possibly trying low dose Effexor. Patient wanted to think about this and feels that this time that her mood is improved and it is not necessary. She is aware that if she has more sad days than good days in a week that it is encouraged. Patient has not had menses this week and scant bilateral nipple discharge thought to be related to change in hormones. We will continue to monitor. Patient is scheduled to meet with Dr. Bellamy general surgeon next week. She is thinking about breast reconstruction as part of her surgical plan which may require her to be referred out of state. Patient then will complete surgery and possibly radiation therapy. PLAN: Patient will contact us if she has questions or concerns. Cycle 7 of 12 Taxol today. Continue with Physical therapy I personally spent a total of 20 minutes. Of that 15 minutes was counseling/ coordination of patient's care. See my note above for details. Copies to: CHANDRA GIBSON NANCY J TAPE MAKING MACHINE OPERATOR-BC, ONC Jul 22, 2017 10:30
[2017-07-22] MEDS: FAMOTIDINE 10 MG/ML SDV IVP PRN (10:40)
[2017-07-22] MEDS: diphenhydrAMINE 50 MG/ML VIAL IVP PRN (10:42)
[2017-07-22] MEDS: DEXAMETHASONE SOD PHOS 10MG/ML IVP PRN (10:43)
[2017-07-22] MEDS: HEPARIN FLSH (PORT) 500 UN/5ML IVP PRN (11:13)
[2017-07-22 12:34] VITALS: BP 111/64
[2017-07-29] MEDS: diphenhydrAMINE 50 MG/ML VIAL IVP PRN (10:10)
[2017-07-29] MEDS: FAMOTIDINE 10 MG/ML SDV IVP PRN (10:15)
[2017-07-29] MEDS: LIDOCAINE/SOD BICARB 8.4% SYR ID PRN (10:48)
[2017-07-29] MEDS: DEXAMETHASONE SOD PHOS 10MG/ML IVP PRN (10:49)
--- NOTE | 2017-07-29 11:15 | ONC Progress Note - NP.Halsey ---
Patient History Date of Service Jul 29, 2017 Reason For Visit/HPI Patient is seen in the clinic today for cycle 9 of Taxol out of 12 weekly treatments. Patient reports that she is tolerating treatment relatively well but is experiencing increased fatigue with each treatment. She denies neuropathy in her hands and feet which is a common side effect from Taxol therapy. She is having some lower abdominal discomfort on the left side that comes and goes. I suggested an ultrasound of the area for further review but they are unable to get her in today. If pain continues or increases she will go to [place] and have the ultrasound completed their. She is having some heartburn with acid reflux usually experienced in the evening. She has not tried any PPIs. She was encouraged to use Nexium or Protonix which she has available to her 10 days and see if her symptoms improve. Often the steroid therapy given with weekly treatment will cause more GI symptoms. Patient has a chronic cough without fever or chills or expectation. This could possibly be caused by GERD. In addition patient has not had her menses cycle over the last month which can occur with chemotherapy. He did report that she had cramping at her scheduled time for her menses. Patient is scheduled to follow with Dr. Bellamy today to discuss surgical procedure. Patient has been told previously that she needs to have a mastectomy. She is interested in rest reconstruction surgery. Dr. Khan was going to refer her to a plastic surgeon, however this has not occurred. Patient is anxious regarding the procedure of mastectomy and reconstruction and felt that visiting with Dr. Bellamy would certainly help her anxiety. She was assured that Dr. Bellamy would also refer her to a plastic surgeon that he commonly works with. Problem List (1) Breast cancer, right Oncology History 1. Multifocal invasive ductal carcinoma of the right breast, ER/DE positive. a. Initial breast imaging in [place], [place] for palpable lump in right breast. b. Bilateral diagnostic mammogram and whole right breast ultrasound performed on February 19. Mammogram shows scattered fibroglandular tissue in multiple groups of suspicious microcalcifications involving the entire upper/outer quadrant of the right breast. Ultrasound of the right breast reveals, amongst other findings, a lobular, solid, vascular mass measuring about 4 cm from the nipple with multiple punctate echogenic foci consistent with calcifications. This finding was highly suspicious for malignancy. Also, 3 cm from the nipple at 10 o'clock there was a complex solid nodule. At 11 o'clock, about 1 cm from the nipple there was a lobular vascular oval mass. c. March 01: Breast MRI reveals areas of ductal enhancement consistent with adenosis of the left breast as well as multiple benign cystic lesions. There was extensive involvement of the right breast from approximately 8 to 11 o' clock with suspicious enhancement highly suggestive of diffuse malignancy. This area extended from the chest wall to the retroareolar region. There was no evidence of adenopathy in the axillary regions. There was contrast enhancement extending to the chest wall, but no definitive chest wall invasion as detected. d. February 27: Patient subsequently undergoes biopsies of two separate areas of the right breast. First biopsy consistent with invasive ductal carcinoma, moderately or poorly differentiated (grade 3/3), 3 mm in greatest dimension with extensive intermediate grade DCIS, solid type with necrosis and microcalcification. 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 e. March 23: Bone scan reveals relatively diffuse sternal and manubrial localization that is likely reactive or inflammatory in nature; no definite osseous metastatic pattern. f. February 20: CT scan of chest, abdomen and pelvis reveals at least four noncalcified pulmonary nodules seen in the lungs, with largest measuring 6 mm in diameter. Possible noncalcified granulomas; there are small calcified mediastinal lymph nodes. Right breast masses were noted consistent with her history of breast cancer. 8 mm round hypoattenuating lesion in the medial segment of the left lobe of the liver which is too small to characterize. Sclerosis along left-sided L5 vertebral body which could be degenerative, as a mildly bulging disk was present at this level. Adriamycin and Cytoxan started on 04/15/2017 and completed on 05/27/2017 4 scheduled cycles. Weekly Taxol therapy 12 started on 06/10/2017 followed by surgery and possibly radiation therapy. BRCA1 and 2 genetic testing was completed and was negative. Psychosocial History Social History Patient is single but has a significant other. 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 Alcohol History She denies abuse Smoking History: No Smoking Status: Never Smoker Exposure to Second Hand Smoke?: No Medications and Allergies Active Scripts Prochlorperazine Maleate (Compazine) 10 Mg Tablet, 10 MG PO Q6H for Nausea, #15 TAB 1 Refill Prov:CHRISTOPHERTRAVON J LEADLIGHTER-BC, ONC 04/15/17 Docusate Sodium (COLACE) 100 Mg Capsule, 1 CAP PO BID, #30 CAP 0 Refills TAKE WITH A FULL GLASS OF WATER Prov:JOHANNE ARRIAGA MD 04/09/17 Oxycodone Hcl/Acetaminophen (PERCOCET 5-325 MG TABLET) 1 Each Tablet, 1-2 TAB PO Q4H Y for PAIN, #20 TAB 0 Refills Prov:JOHANNE ARRIAGA MD 04/09/17 Allergies: Coded Allergies: No Known Drug Allergies (Unverified , 04/08/17) Review of System/Physical Exam Review of Systems All Systems Reviewed/Normal: Yes, Except as Noted Gastrointestinal: Heart Burn, Abdominal Pain Hematologic: Positive for Fatigue Psychiatric: Anxiety Skin: Positive for Dry Skin Physical Exam Vital Signs Temperature: 97.9 Pulse: 71 BP Systolic: 111 BP Diastolic: 64 Respiratory Rate: 16 O2 SAT: 94 O2 Delivery: Height (inches) 64.00 Weight lb: 0 Weight oz: Weight Kg (Antonino): [id number] Pain: 0 ECOG Score: 1 General: Stable, Well Developed, Well Nourished, Not In Acute Distress HEENT: No Trauma, No Conjunctivitis, No Icterus, No Mucositis, No Oral Thrush Neck: Supple Lungs: Clear to Auscultation Heart: Regular Rate, Regular Rhythm, No Gallops Abdomen: Soft and Nontender, No Hepatosplenomegaly Extremities: No Cyanosis, No Clubbing, No Edema Lymphadenopathy: No Subclavicular Psychiatric: Mood appears normal, Affect appears normal Skin: No Skin Rashes, No Bruising Diagnostic Studies Diagnostic Studies Laboratory Labs drawn on 07/27/2017 shows a white cell count of 4001 115, hemoglobin of 11.4, hematocrit of 34.8, platelet count of 321,000 with an absolute neutrophil count of 3009. Her chemistry is essentially unremarkable with a slightly elevated ALT of 70 and AST of 52. Assessment and Plan Assessment & Plan Patient is seen today for her multifocal high grade ER/DE positive invasive ductal carcinoma of the right breast. She completed Adriamycin and Cytoxan 4/4 scheduled cycles. Cycle 9/12f weekly Taxol therapy today. She is tolerating treatment very well with increased fatigue and possible GERD. I will start her on Nexium 10 days to see if this improves her heartburn usually experienced at night and chronic cough possibly related to GERD. Patient has had anxiety regarding breast surgery. She is meeting with Dr. Bellamy today to review surgical procedure and possibility of breast reconstruction as part of her surgical plan. Post surgery she possibly will need radiation therapy and this was discussed with her today. Ultrasound of the left abdomen was scheduled for today, unfortunately they could not get her in. If patient continues to have increased pain she will go to the hospital in [place] and we will send an order to have it completed then. Pain was minimal on examination today. PLAN: Patient will contact us if she has questions or concerns. Cycle 9 of 12 Taxol today. Continue with Physical therapy Consult with Dr. Bellamy. Nexium 10 days and reevaluate GERD and chronic cough I personally spent a total of 20 minutes. Of that 15 minutes was counseling/ coordination of patient's care. See my note above for details. Copies to: JOHANNE ARRIAGA MD, NANCY J LEADLIGHTER-BC, ONC Jul 29, 2017 11:15
[2017-07-29] MEDS: HEPARIN FLSH (PORT) 500 UN/5ML IVP PRN (12:04)
[2017-07-29] MEDS: NS(*) 0.9% 500 ML BAG 500 ML IV PRN (12:05)
[2017-07-29 13:57] VITALS: BP 114/72
[2017-08-05 10:14] VITALS: BP 112/71
[2017-08-05] MEDS: diphenhydrAMINE 50 MG/ML VIAL IVP PRN (10:38)
[2017-08-05] MEDS: DEXAMETHASONE SOD PHOS 10MG/ML IVP PRN (10:38)
[2017-08-05] MEDS: FAMOTIDINE 10 MG/ML SDV IVP PRN (10:39)
[2017-08-05] MEDS: LIDOCAINE/SOD BICARB 8.4% SYR ID PRN (10:47)
[2017-08-05] MEDS: HEPARIN FLSH (PORT) 500 UN/5ML IVP PRN (15:09)
--- NOTE | 2017-08-05 18:05 | ONCOLOGY FOLLOW UP NOTE ---
EVENT DATE: August 05, 2017 REASON FOR FOLLOWUP Multicentric ER/NM positive high grade right breast cancer. INTERIM HISTORY Nahum returns to clinic for a follow-up visit today. She is accompanied by her mother. She is preparing to receive her ninth of 12 planned weekly cycles of paclitaxel. She reports that things have been going a bit better since our last visit. She and her family have been working on better communication. Her significant other had come with her to her last infusion visit. She reports no new symptoms. She does feel fairly tired most of the time. She reports no peripheral neuropathy. She denies fever. Her appetite is good, and her weight has been stable. Nausea has been minimal. She has had no change in bowel habits and she denies new urinary symptoms. REVIEW OF SYSTEMS Otherwise negative, and all systems were reviewed. ONCOLOGY HISTORY 1. 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 a. Initial breast imaging in [place], [place] for palpable lump in right breast. b. Bilateral diagnostic mammogram and whole right breast ultrasound performed on February 19. Mammogram shows scattered fibroglandular tissue in multiple groups of suspicious microcalcifications involving the entire upper/outer quadrant of the right breast. Ultrasound of the right breast reveals, amongst other findings, a lobular, solid, vascular mass measuring about 4 cm from the nipple with multiple punctate echogenic foci consistent with calcifications. This finding was highly suspicious for malignancy. Also, 3 cm from the nipple at 10 o'clock there was a complex solid nodule. At 11 o'clock, about 1 cm from the nipple there was a lobular vascular oval mass. c. March 01: Breast MRI reveals areas of ductal enhancement consistent with adenosis of the left breast as well as multiple benign cystic lesions. There was extensive involvement of the right breast from approximately 8 to 11 o' clock with suspicious enhancement highly suggestive of diffuse malignancy. This area extended from the chest wall to the retroareolar region. There was no evidence of adenopathy in the axillary regions. There was contrast enhancement extending to the chest wall, but no definitive chest wall invasion as detected. d. February 27: Patient subsequently undergoes biopsies of two separate areas of the right breast. First biopsy consistent with invasive ductal carcinoma, moderately or poorly differentiated (grade 3/3), 3 mm in greatest dimension with extensive intermediate grade DCIS, solid type with necrosis and microcalcification. 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 e. March 23: Bone scan reveals relatively diffuse sternal and manubrial localization that is likely reactive or inflammatory in nature; no definite osseous metastatic pattern. f. February 20: CT scan of chest, abdomen and pelvis reveals at least four noncalcified pulmonary nodules seen in the lungs, with largest measuring 6 mm in diameter. Possible noncalcified granulomas; there are small calcified mediastinal lymph nodes. Right breast masses were noted consistent with her history of breast cancer. 8 mm round hypoattenuating lesion in the medial segment of the left lobe of the liver which is too small to characterize. Sclerosis along left-sided L5 vertebral body which could be degenerative, as a mildly bulging disk was present at this level. g. MRI abdomen reveals that the 8 mm hypoattenuating lesion on CT is consistent with a cyst. h. Oncotype DX testing has returned with a recurrence score of 10. BRCA1 and 2 currently pending. i. Patient is status post dose dense AC. j. Patient continues on weekly Taxol infusions, with plan for a total of 12 weekly infusions. PAST MEDICAL HISTORY Patient is otherwise healthy, with the exception of written history to indicate a possible "hole" in her esophagus in 2009 and 2014. No prior primary care notes are currently available. CURRENT MEDICATIONS 1. Compazine p.r.n. 2. Colace p.r.n. 3. Percocet p.r.n. ALLERGIES No known drug allergies. SOCIAL HISTORY Patient is single, recently . She has children ages 24, 21, and 8. 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 She is a nondrinker and nonsmoker. There is no history of illicit drug use. VITAL SIGNS Temperature 98.2, blood pressure 112/71, heart rate is 63, respirations 16, oxygen saturation is 97% on room air. Weight is 82.1 kg. PHYSICAL EXAMINATION GENERAL: Patient is alert and oriented times three, in no apparent distress sitting in the infusion chair. She is in good spirits and quite interactive today. HEENT: Exam reveals anicteric sclerae. NEUROLOGIC: Exam is grossly nonfocal. EXTREMITIES: Exam reveals no edema, clubbing or cyanosis. SKIN: Exam reveals no concerning rash or lesion. LABORATORY Studies are reviewed per the [facility]. ASSESSMENT AND PLAN Multicentric ER/NM positive high grade right breast cancer. I had a good visit with Nahum and her mother today. She is doing remarkably well with ongoing weekly Taxol infusions. Toxicity has been modest. She is quite intent on finishing 12 weekly cycles, and it is very likely that she will be able to do so. We spent some time today discussing future surgical plans. She has visited with Dr. Krishnan, and a referral has been made to Dr. Case in plastic surgery in [place]. I will plan to see her back in roughly one month's time, and she will continue with weekly cycle visits with Dustin Jaimes, nurse practitioner, here at [facility] in the meantime. MTDD
[2017-08-11 09:59] VITALS: BP 110/79
[2017-08-11] MEDS: LIDOCAINE/SOD BICARB 8.4% SYR ID PRN (10:11)
[2017-08-11] MEDS: NS(*) 0.9% 500 ML BAG 500 ML IV PRN (12:19)
[2017-08-11 12:46] VITALS: BP 104/70
[2017-08-11] MEDS: HEPARIN FLSH (PORT) 500 UN/5ML IVP PRN (12:46)
--- NOTE | 2017-08-11 13:13 | ONC Progress Note - NP.Halsey ---
Patient History Date of Service Aug 11, 2017 Reason For Visit/HPI Patient is seen in the clinic today for cycle 10 of Taxol out of 12 weekly treatments. She is accompanied by her mother and father today. Patient has tolerated each cycle with minimal to no difficulty. She denies any nausea or vomiting, diarrhea or constipation, and has no neuropathy or nail bed changes. 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 Her appetite is good and her weight has been stable. She is scheduled to follow with the plastic surgeon in [facility] next Thursday. As she is traveling through she will probably stop and have her labs completed here at the clinic for chemotherapy the following Thursday. Problem List (1) Breast cancer, right Oncology History 1. Multifocal invasive ductal carcinoma of the right breast, ER/CO positive. a. Initial breast imaging in [place], [place] for palpable lump in right breast. b. Bilateral diagnostic mammogram and whole right breast ultrasound performed on February 19. Mammogram shows scattered fibroglandular tissue in multiple groups of suspicious microcalcifications involving the entire upper/outer quadrant of the right breast. Ultrasound of the right breast reveals, amongst other findings, a lobular, solid, vascular mass measuring about 4 cm from the nipple with multiple punctate echogenic foci consistent with calcifications. This finding was highly suspicious for malignancy. Also, 3 cm from the nipple at 10 o'clock there was a complex solid nodule. At 11 o'clock, about 1 cm from the nipple there was a lobular vascular oval mass. c. March 01: Breast MRI reveals areas of ductal enhancement consistent with adenosis of the left breast as well as multiple benign cystic lesions. There was extensive involvement of the right breast from approximately 8 to 11 o' clock with suspicious enhancement highly suggestive of diffuse malignancy. This area extended from the chest wall to the retroareolar region. There was no evidence of adenopathy in the axillary regions. There was contrast enhancement extending to the chest wall, but no definitive chest wall invasion as detected. d. February 27: Patient subsequently undergoes biopsies of two separate areas of the right breast. First biopsy consistent with invasive ductal carcinoma, moderately or poorly differentiated (grade 3/3), 3 mm in greatest dimension with extensive intermediate grade DCIS, solid type with necrosis and microcalcification. 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 e. March 23: Bone scan reveals relatively diffuse sternal and manubrial localization that is likely reactive or inflammatory in nature; no definite osseous metastatic pattern. f. February 20: CT scan of chest, abdomen and pelvis reveals at least four noncalcified pulmonary nodules seen in the lungs, with largest measuring 6 mm in diameter. Possible noncalcified granulomas; there are small calcified mediastinal lymph nodes. Right breast masses were noted consistent with her history of breast cancer. 8 mm round hypoattenuating lesion in the medial segment of the left lobe of the liver which is too small to characterize. Sclerosis along left-sided L5 vertebral body which could be degenerative, as a mildly bulging disk was present at this level. g. MRI abdomen reveals that the 8 mm hypoattenuating lesion on CT is consistent with a cyst. h. Oncotype DX testing has returned with a recurrence score of 10. BRCA1 and 2 currently pending. i. Patient is status post dose dense AC. Adriamycin and Cytoxan started on 04/15/2017 and completed on 05/27/2017 4 scheduled cycles. Weekly Taxol therapy 12 started on 06/10/2017 followed by surgery and possibly radiation therapy. BRCA1 and 2 genetic testing was completed and was negative. Psychosocial History Social History Patient is single but has a significant other. 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 Alcohol History She denies abuse Smoking History: No Smoking Status: Never Smoker Exposure to Second Hand Smoke?: No Medications and Allergies Active Scripts Prochlorperazine Maleate (Compazine) 10 Mg Tablet, 10 MG PO Q6H for Nausea, #15 TAB 1 Refill Prov:TRAVON WHITE ANIMAL NUTRITION TEACHER-BC, ONC 04/15/17 Docusate Sodium (COLACE) 100 Mg Capsule, 1 CAP PO BID, #30 CAP 0 Refills TAKE WITH A FULL GLASS OF WATER Prov:JOHANNE ARRIAGA MD 04/09/17 Oxycodone Hcl/Acetaminophen (PERCOCET 5-325 MG TABLET) 1 Each Tablet, 1-2 TAB PO Q4H Y for PAIN, #20 TAB 0 Refills Prov:JOHANNE ARRIAGA MD 04/09/17 Allergies: Coded Allergies: No Known Drug Allergies (Unverified , 04/08/17) Review of System/Physical Exam Review of Systems All Systems Reviewed/Normal: Yes, Except as Noted Respiratory: Positive for Cough (chronic cough only occurs at night prior to bed, slightly improved. Patient was placed on Nexium samples for 10 days with some resolution.) Hematologic: Positive for Fatigue Skin: Positive for Dry Skin Physical Exam Vital Signs Temperature: 97.8 Pulse: 78 BP Systolic: 104 BP Diastolic: 70 Respiratory Rate: 16 O2 SAT: 96 O2 Delivery: Height (inches) 64.00 Weight lb: 0 Weight oz: Weight Kg (Antonino): [id number] Pain: 0 ECOG Score: 0 General: Stable, Well Developed, Well Nourished, Not In Acute Distress HEENT: No Trauma, No Conjunctivitis, No Icterus, No Mucositis, No Oral Thrush Neck: Supple Heart: Regular Rate, Regular Rhythm, No Gallops Abdomen: Soft and Nontender, No Hepatosplenomegaly, No Masses, Other (bowel sounds are active) Extremities: No Cyanosis, No Clubbing, No Edema Lymphadenopathy: No Cervical Psychiatric: Mood appears normal, Affect appears normal Skin: No Skin Rashes, No Bruising Diagnostic Studies Diagnostic Studies Laboratory CBC drawn on 08/10/2017 shows a white cell count of 3.11, hemoglobin is 12.3 hematocrit 37.5 with a platelet count of 385,000 absolute neutrophil count is 2130. Her chemistry is unremarkable. Assessment and Plan Assessment & Plan Patient is seen today for her multifocal high grade ER/CO positive invasive ductal carcinoma of the right breast. She completed Adriamycin and Cytoxan 4/4 scheduled cycles. Cycle 10/12 of weekly Taxol therapy today. Toxicity has been minimal. She does have some fatigue status post treatment which resolves fairly quickly. She is consulting with Dr. Case in plastic surgery in [place] on Thursday, to discuss surgical options. Patient is likely will then complete radiation therapy. This will be determined after the surgery is completed. PLAN: Patient will contact us if she has questions or concerns. Cycle 10 of 12 Taxol today. Continue with Physical therapy I personally spent a total of 20 minutes. Of that 15 minutes was counseling/ coordination of patient's care. See my note above for details. TRAVON WHITE ANIMAL NUTRITION TEACHER-BC, ONC Aug 11, 2017 13:13
[2017-08-17 13:37] VITALS: BP 125/75
[2017-08-17 13:54] LABS: PLATELET COUNT, AUTOMATED 392 K/uL (150-450)
[2017-08-19 09:59] VITALS: BP 128/84
[2017-08-19] MEDS: LIDOCAINE/SOD BICARB 8.4% SYR ID PRN (10:11)
[2017-08-19] MEDS: NS(*) 0.9% 500 ML BAG 500 ML IV PRN (10:17)
[2017-08-19] MEDS: FAMOTIDINE 10 MG/ML SDV IVP PRN (10:41)
[2017-08-19] MEDS: DEXAMETHASONE SOD PHOS 10MG/ML IVP PRN (10:41)
[2017-08-19] MEDS: diphenhydrAMINE 50 MG/ML VIAL IVP PRN (10:57)
[2017-08-19] MEDS: HEPARIN FLSH (PORT) 500 UN/5ML IVP PRN (12:48)
[2017-08-19 15:21] VITALS: BP 125/78
--- NOTE | 2017-08-19 21:29 | ONCOLOGY FOLLOW UP NOTE ---
EVENT DATE: August 19, 2017 REASON FOR FOLLOWUP Multicentric ER/DE positive high grade right breast cancer. INTERIM HISTORY Nahum returns to clinic for a follow-up visit today. She is accompanied by her mother. She is here to receive weekly paclitaxel. She reports that things have been going about the same since our last visit. She has had some ongoing fatigue, but she denies fever. Her appetite is good, and her weight has been stable. Peripheral neuropathy has been minimal. She has had really no nausea to speak of. She denies changes in her bowel habits, and she has had no new urinary symptoms. She did visit with Plastic Surgery since my last visit with her, and after giving this significant thought, she is leaning away from reconstruction. She plans to discuss this further with Dr. Krishnan in Surgery. REVIEW OF SYSTEMS Otherwise negative, and all systems were reviewed. ONCOLOGY HISTORY 1. Multifocal invasive ductal carcinoma of the right breast, ER/DE positive. a. Initial breast imaging in [place], [place] for palpable lump in right breast. b. Bilateral diagnostic mammogram and whole right breast ultrasound performed on February 19. Mammogram shows scattered fibroglandular tissue in multiple groups of suspicious microcalcifications involving the entire upper/outer quadrant of the right breast. Ultrasound of the right breast reveals, amongst other findings, a lobular, solid, vascular mass measuring about 4 cm from the nipple with multiple punctate echogenic foci consistent with calcifications. This finding was highly suspicious for malignancy. Also, 3 cm from the nipple at 10 o'clock there was a complex solid nodule. At 11 o'clock, about 1 cm from the nipple there was a lobular vascular oval mass. c. March 01: Breast MRI reveals areas of ductal enhancement consistent with adenosis of the left breast as well as multiple benign cystic lesions. There was extensive involvement of the right breast from approximately 8 to 11 o' clock with suspicious enhancement highly suggestive of diffuse malignancy. This area extended from the chest wall to the retroareolar region. There was no evidence of adenopathy in the axillary regions. There was contrast enhancement extending to the chest wall, but no definitive chest wall invasion as detected. d. February 27: Patient subsequently undergoes biopsies of two separate areas of the right breast. First biopsy consistent with invasive ductal carcinoma, moderately or poorly differentiated (grade 3/3), 3 mm in greatest dimension with extensive intermediate grade DCIS, solid type with necrosis and microcalcification. 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 e. March 23: Bone scan reveals relatively diffuse sternal and manubrial localization that is likely reactive or inflammatory in nature; no definite osseous metastatic pattern. f. February 20: CT scan of chest, abdomen and pelvis reveals at least four noncalcified pulmonary nodules seen in the lungs, with largest measuring 6 mm in diameter. Possible noncalcified granulomas; there are small calcified mediastinal lymph nodes. Right breast masses were noted consistent with her history of breast cancer. 8 mm round hypoattenuating lesion in the medial segment of the left lobe of the liver which is too small to characterize. Sclerosis along left-sided L5 vertebral body which could be degenerative, as a mildly bulging disk was present at this level. g. MRI abdomen reveals that the 8 mm hypoattenuating lesion on CT is consistent with a cyst. h. Oncotype DX testing has returned with a recurrence score of 10. BRCA1 and 2 currently pending. i. Patient is status post dose dense AC. j. Patient continues on weekly Taxol infusions, with plan for a total of 12 weekly infusions. PAST MEDICAL HISTORY Patient is otherwise healthy, with the exception of written history to indicate a possible "hole" in her esophagus in 2009 and 2014. No prior primary care notes are currently available. CURRENT MEDICATIONS 1. Compazine p.r.n. 2. Colace p.r.n. 3. Percocet p.r.n. ALLERGIES No known drug allergies. SOCIAL HISTORY Patient is single, recently . She has children ages 24, 21, and 8. 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 She is a nondrinker and nonsmoker. There is no history of illicit drug use. VITAL SIGNS Temperature 97.0, blood pressure 128/84, heart rate is 74, respirations 16, oxygen saturation is 95% on room air. Weight is 83.2 kg. PHYSICAL EXAMINATION GENERAL: Patient is alert and oriented times three, in no apparent distress sitting in the infusion chair. She is in good spirits and interactive. HEENT: Exam reveals anicteric sclerae. NEUROLOGIC: Exam is grossly nonfocal. EXTREMITIES: Exam reveals no edema, clubbing or cyanosis. SKIN: Exam reveals no concerning rash or lesion. LABORATORY Studies are reviewed per the [facility] record. ASSESSMENT AND PLAN Multicentric ER/DE positive high grade right breast cancer. Nahum continues to do well. She is almost done with her neoadjuvant chemotherapy. We reviewed her labs, which are acceptable for treatment. We spent a good deal of time discussing her recent visit with Plastic Surgery. She is not quite 100% at this point, but she is close to moving forward with mastectomy without reconstruction. She has given this a tremendous amount of thought, and she has support from her loved ones. She will complete her neoadjuvant chemotherapy, and then have a period of rest. As discussed, the tentative plan will be for her to undergo mastectomy with Dr. Krishnan. I would like for my next visit with her to be after her surgery so that we may sit down and review her surgical pathology together. We discussed the future use of adjuvant endocrine therapy, as well as the unlikely possibility of adjuvant radiation therapy as well today. SHEA
[~2017-08-26] VITALS: Ht 162.6 cm; Wt 84.6 kg
[~2017-08-26 10:01] MED LIST changes: +ACET500T68 PO; +ALTEPLASE RECOMB 2 MG VIAL IVP PRN; +DEXTROSE 5%(*) 100 ML BAG 100 ML IVPB PRN; +NS 0.9% IVPB ONE; +NS 0.9% IVPB PRN; +NS(*) 0.9% 100 ML BAG 100 ML IVPB PRN; +PACLITAXEL IVPB ONE; +PACLITAXEL IVPB PRN; +WATER STERILE 10 ML VIAL IVP PRN
[2017-08-26 10:17] VITALS: BP 104/68
[2017-08-26] MEDS: LIDOCAINE/SOD BICARB 8.4% SYR ID PRN (10:33)
--- NOTE | 2017-08-26 10:52 | ONC Progress Note - NP.Halsey ---
Patient History Date of Service Aug 26, 2017 Reason For Visit/HPI Patient is seen in the clinic today for cycle 12 of Taxol out of 12 weekly treatments. Patient has tolerated each cycle with minimal to no difficulty. Today she reports that she continues to have a dry intermittent cough, generalized muscle pain, neuropathy in the right middle finger and nails are brittle. She has developed weeping from the right great toe and nail bed changes with discoloration. She has been soaking her toe and hydrogen peroxide but reports that there is a foul odor and it continues to weep. She is scheduled to follow with Dr. Bellamy regarding bilateral mastectomy on September 09 and the following week will complete surgery. She is feeling very good about her final decision. Her mother, father and her son are with her today. Oncology History 1. 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 a. Initial breast imaging in [place], [place] for palpable lump in right breast. b. Bilateral diagnostic mammogram and whole right breast ultrasound performed on February 19. Mammogram shows scattered fibroglandular tissue in multiple groups of suspicious microcalcifications involving the entire upper/outer quadrant of the right breast. Ultrasound of the right breast reveals, amongst other findings, a lobular, solid, vascular mass measuring about 4 cm from the nipple with multiple punctate echogenic foci consistent with calcifications. This finding was highly suspicious for malignancy. Also, 3 cm from the nipple at 10 o'clock there was a complex solid nodule. At 11 o'clock, about 1 cm from the nipple there was a lobular vascular oval mass. c. March 01: Breast MRI reveals areas of ductal enhancement consistent with adenosis of the left breast as well as multiple benign cystic lesions. There was extensive involvement of the right breast from approximately 8 to 11 o' clock with suspicious enhancement highly suggestive of diffuse malignancy. This area extended from the chest wall to the retroareolar region. There was no evidence of adenopathy in the axillary regions. There was contrast enhancement extending to the chest wall, but no definitive chest wall invasion as detected. d. February 27: Patient subsequently undergoes biopsies of two separate areas of the right breast. First biopsy consistent with invasive ductal carcinoma, moderately or poorly differentiated (grade 3/3), 3 mm in greatest dimension with extensive intermediate grade DCIS, solid type with necrosis and microcalcification. 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 e. March 23: Bone scan reveals relatively diffuse sternal and manubrial localization that is likely reactive or inflammatory in nature; no definite osseous metastatic pattern. f. February 20: CT scan of chest, abdomen and pelvis reveals at least four noncalcified pulmonary nodules seen in the lungs, with largest measuring 6 mm in diameter. Possible noncalcified granulomas; there are small calcified mediastinal lymph nodes. Right breast masses were noted consistent with her history of breast cancer. 8 mm round hypoattenuating lesion in the medial segment of the left lobe of the liver which is too small to characterize. Sclerosis along left-sided L5 vertebral body which could be degenerative, as a mildly bulging disk was present at this level. g. MRI abdomen reveals that the 8 mm hypoattenuating lesion on CT is consistent with a cyst. h. Oncotype DX testing has returned with a recurrence score of 10. BRCA1 and 2 currently pending. i. Patient is status post dose dense AC started on 04/15/2017 and completed on 05/27/2017 4 scheduled cycles. j. Patient will complete weekly Taxol infusions with a total of 12 weekly infusions. BRCA1 and 2 genetic testing was completed and was negative. Psychosocial History Social History Patient is single but has a significant other. 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 Alcohol History She denies abuse Smoking History: No Smoking Status: Never Smoker Exposure to Second Hand Smoke?: No Medications and Allergies Active Scripts Cephalexin 500 Mg Tab (KEFLEX 500 MG TAB) 500 Mg Tablet, 500 MG PO BID for 10 Days, #20 TAB Prov:TRAVON WHITE WELFARE OFFICER-BC, ONC 08/26/17 Reported Medications Acetaminophen (TYLENOL EXTRA STRENGTH) 500 Mg Tablet, 500 MG PO PRN Y for PAIN, TAB 08/19/17 Discontinued Scripts Prochlorperazine Maleate (Compazine) 10 Mg Tablet, 10 MG PO Q6H for Nausea, #15 TAB 1 Refill Prov:TRAVON WHITE WELFARE OFFICER-BC, ONC 04/15/17 Docusate Sodium (COLACE) 100 Mg Capsule, 1 CAP PO BID, #30 CAP 0 Refills TAKE WITH A FULL GLASS OF WATER Prov:JOHANNE ARRIAGA MD 04/09/17 Oxycodone Hcl/Acetaminophen (PERCOCET 5-325 MG TABLET) 1 Each Tablet, 1-2 TAB PO Q4H Y for PAIN, #20 TAB 0 Refills Prov:JOHANNE ARRIAGA MD 04/09/17 Allergies: Coded Allergies: No Known Drug Allergies (Unverified , 04/08/17) Review of System/Physical Exam Review of Systems All Systems Reviewed/Normal: Yes, Except as Noted Musculoskeletal: Positive for Muscle Pain Neurologic: Tingling of Hands Skin: Positive for Dry Skin, Positive for Moist Skin (right greater toe has weeping), Positive for Other (brittle nails) Physical Exam Vital Signs Temperature: 97.4 Pulse: 90 BP Systolic: 104 BP Diastolic: 68 Respiratory Rate: 14 O2 SAT: 98 O2 Delivery: Height (inches) 64.00 Weight lb: 0 Weight oz: Weight Kg (Antonino): [id number] Pain: 0 ECOG Score: 0 General: Stable, Well Developed, Well Nourished, Not In Acute Distress HEENT: No Trauma, No Conjunctivitis, No Icterus, No Mucositis, No Oral Thrush Lungs: Clear to Auscultation Heart: Regular Rate, Regular Rhythm, No Gallops, No Murmurs Abdomen: Soft and Nontender, No Hepatosplenomegaly, No Masses, Other (bowel sounds are active) Extremities: No Cyanosis, No Clubbing, No Edema, Other (deep erythema and creamy discolored green weeping from the right greater toenail interiorly with a foul odor. Tenderness to palpation. Able to manipulate to move the fluid. Patient also has an area on her right forefinger that has deep erythema. All nails have some mild discoloration in the medial aspect of the nail bed.) Psychiatric: Mood appears normal, Affect appears normal Skin: No Skin Rashes, No Bruising Diagnostic Studies Diagnostic Studies Laboratory CBC drawn on August 24 show a white cell count of 5100, hemoglobin 12.9, hematocrit of 38.6 and a platelet count of 406,000. Absolute neutrophil count is 3630. Her chemistry is unremarkable Assessment and Plan Assessment & Plan Patient is seen today for her multifocal high grade ER/GA positive invasive ductal carcinoma of the right breast. She completed Adriamycin and Cytoxan 4/4 scheduled cycles. Cycle 12/12 of weekly Taxol therapy today. Toxicity has been minimal. She does have some fatigue status post treatment which resolves fairly quickly. She consulted did with Dr. Case in plastic surgery in [place] on 2017 to discuss surgical options and has decided against reconstructive surgery. She is scheduled to complete bilateral mastectomy with Dr. Bellamy on September 17. She will then follow with Dr. Khan to review final pathology and continued plan of care postsurgical procedure. A camisole was given to her today to hold her drains post surgery. She will bring it with her to the hospital. Infected toenail on the greater toe medial aspect with deep erythema and weeping. I will start her on Keflex 500 mg twice a day 10 days. Patient will call the clinic if symptoms do not resolve. PLAN: Patient will contact us if she has questions or concerns. Cycle 12 of 12 Taxol today. Continue with Physical therapy- she may need a prescription to continue physical therapy in [place] Follow-up status post surgical procedure with Dr. Khan. I personally spent a total of 25 minutes. Of that 25 minutes was counseling/ coordination of patient's care. See my note above for details. Copies to: CHANDRA GIBSON NANCY J WELFARE OFFICER-BC, ONC Aug 26, 2017 10:52
[2017-08-26] MEDS: DEXAMETHASONE SOD PHOS 10MG/ML IVP PRN (11:01)
[2017-08-26] MEDS: FAMOTIDINE 10 MG/ML SDV IVP PRN (11:01)
[2017-08-26] MEDS: diphenhydrAMINE 50 MG/ML VIAL IVP PRN (11:32)
[2017-08-26] MEDS ORDERED: CEPH500T7 PO (11:37)
[2017-08-26] MEDS ORDERED: PACLITAXEL IVPB ONE (12:00)
[2017-08-26] MEDS ORDERED: NS 0.9% IVPB ONE (12:00)
[2017-08-26] MEDS: HEPARIN FLSH (PORT) 500 UN/5ML IVP PRN (12:48)
[2017-08-26 12:50] VITALS: BP 107/70
[2017-09-09] MEDS ORDERED: LIDO15CR8 TOP (14:18)
[2017-09-14] MEDS ORDERED: GUAI1TAB25 PO (08:30)
== END 2017-09-14 ==
LOC: ONC 10:01
PROVIDERS: ATTEND Internal Medicine Medical Oncology
DX: Z51.11 Encounter for antineoplastic chemotherapy (principal); C50.911 Malignant neoplasm of unspecified site of right female breast; Z17.0 Estrogen receptor positive status [ER+]; Z79.899 Other long term (current) drug therapy; R53.83 Other fatigue; L65.9 Nonscarring hair loss, unspecified; R05 Cough; G62.9 Polyneuropathy, unspecified
CPT/HCPCS: 36415; 85025; 96361; 96375; 96413; 96415; J1100; J1200; J1642; J3490; J7040; J7050; J9267; S0028; 82040; 82247; 82310; 82374; 82435; 82565; 82947; 84075; 84132; 84155; 84295; 84450; 84460; 84520

== ENCOUNTER → 2017-09-16 | Outpatient (CLI) | payer BC, MEDICAID ==
[~2017-09-16] MED LIST changes: -ALTEPLASE RECOMB 2 MG VIAL IVP PRN; +CEPH500T7 PO; -DEXTROSE 5%(*) 100 ML BAG 100 ML IVPB PRN; +GUAI1TAB25 PO; +LIDO15CR8 TOP; -NS 0.9% IVPB ONE; -NS 0.9% IVPB PRN; -NS(*) 0.9% 100 ML BAG 100 ML IVPB PRN; -PACLITAXEL IVPB ONE; -PACLITAXEL IVPB PRN; -WATER STERILE 10 ML VIAL IVP PRN
== END ==
LOC: NUC 01:18
PROVIDERS: ATTEND Surgery
DX: C50.411 Malignant neoplasm of upper-outer quadrant of right female breast (principal)

== ENCOUNTER 2017-09-17 00:42 | Observation (INO) | payer BC, MEDICAID ==
[2017-09-16 13:24] LABS: PLATELET COUNT, AUTOMATED 386 K/uL (150-450)
--- NOTE | 2017-09-16 17:18 | RADIOLOGY IMAGING REPORT ---
FACILITY: [facility] [place] PATIENT NAME: Nahum Carpio : 1975 MR: [id number] V: [id number] EXAM DATE: ORDERING PHYSICIAN: JOHANNE ARRIAGA TECHNOLOGIST: Location: [facility] [place] Patient: Nahum Carpio : 1975 Visit/Account:[id number] Date of Sevice: 09/16/2017 Exam type: SENTINAL NODE STUDY History: Right breast cancer Comparison: None. Findings: Informed consent was obtained. The patient received 4.3 mCi of technetium 99m lymphoseek in 4 subcut aneous right periareolar injections. Multiple gamma camera images were obtained demonstrating damian us right axillary sentinel lymph nodes. IMPRESSION: 1. Numerous right axillary sentinel lymph nodes Report Dictated By: Rizwana King MD at 09/16/2017 5:13 PM Report E-Signed By: Rizwana King MD at 09/16/2017 5:14 PM WSN:DIANNA
[2017-09-17] VITALS (15 sets, daily range): BP systolic 98–118; BP diastolic 63–74
[~2017-09-17] VITALS: Ht 160 cm; Wt 84.4 kg
[2017-09-17] MEDS ORDERED: ISOSULFAN BLUE 1% SLN 50MG/5ML ONE (07:09)
[2017-09-17] MEDS ORDERED: ROPIVACAINE 0.5% 20 ML VIAL ONE ×2 (07:09→07:28)
[2017-09-17] MEDS ORDERED: fentaNYL CITR 250 MCG/5 ML AMP ONE (07:10)
[2017-09-17] MEDS ORDERED: PROPOFOL EMUL(*) 10MG/ML 20 ML 20 ML ONE (07:11)
[2017-09-17] MEDS ORDERED: LIDOCAINE 2% IV 100 MG/5ML SYR ONE (07:12)
[2017-09-17] MEDS ORDERED: FAMOTIDINE 20 MG TAB PO ONE (07:45)
[2017-09-17] MEDS ORDERED: NORMOSOL R SOLN(*) 1000 ML BAG 1,000 ML IV PRN (07:45)
[2017-09-17] MEDS ORDERED: LIDOCAINE/SOD BICARB 8.4% SYR ID ONE (07:45)
[2017-09-17] MEDS ORDERED: ceFAZolin(*) 2GM/D5W 50ML 50 ML IVPB ONE (07:45)
[2017-09-17] MEDS ORDERED: MIDAZOLAM 2 MG/2 ML VIAL IVP PRN (07:45)
[2017-09-17] MEDS ORDERED: DEXAMETHASONE SOD 4 MG/ML VIAL ONE ×2 (07:45→13:24)
[2017-09-17] MEDS ORDERED: KETAMINE HCL 200 MG/20 ML MDV ONE (07:51)
[2017-09-17] MEDS ORDERED: ONDANSETRON 4 MG/2 ML VIAL ONE ×2 (08:41→13:25)
[2017-09-17] MEDS ORDERED: fentaNYL CITR 100 MCG/2 ML AMP ONE ×3 (09:22→13:01)
[2017-09-17] MEDS ORDERED: ceFAZolin 1 GM VIAL ONE (11:44)
[2017-09-17] MEDS ORDERED: NS(*) 0.9% 1000 ML BAG 1,000 ML IV PRN (13:04)
[2017-09-17] MEDS ORDERED: MORPHINE 2 MG/ML SYR IVP PRN (13:05)
[2017-09-17] MEDS ORDERED: ONDANSETRON 4 MG/2 ML VIAL IVP PRN (13:05)
[2017-09-17] MEDS ORDERED: FLUSH 10 ML SYR IVP PRN (13:05)
[2017-09-17] MEDS ORDERED: PROMETHAZINE 25 MG/ML 1 ML AMP IVP PRN (13:05)
--- NOTE | 2017-09-17 13:17 | Post Operative Progress Note ---
Post Operative Progress Note Date: Sep 17, 2017 Time: 13:08 Surgeon: Ariella Dictation number: [id number] Anesthesia: LMA by Dr. Diaz Pre-Op Diagnosis: Right breast cancer Post-Op Diagnosis: YENIFER Findings: 1 SLN removed, frozen indicates no cancer Procedure(s): Bilateral simple mastectomy Right axillary sentinal LN excision Specimen Removed:(May be N/A): 1) Right axillary sentinal lymph node 2) Right breast 3) Left breast Complications: None Fluids: See anesthesia record Estimated Blood Loss: Minimal Date OP Note Dictated: Sep 17, 2017 Time OP Note Dictated: 13:09 JOHANNE ARRIAGA MD Sep 17, 2017 13:17
--- NOTE | 2017-09-17 16:56 | OPERATIVE REPORT 1 ---
EVENT DATE: September 17, 2017 SURGEON: Hammad Krishnan MD ANESTHESIOLOGIST: Giuseppe Diaz MD ANESTHESIA: LMA. PREOPERATIVE DIAGNOSIS Right breast cancer. POSTOPERATIVE DIAGNOSIS Right breast cancer. PROCEDURES PERFORMED 1. Right simple mastectomy. 2. Right axillary sentinel lymph node excision. 3. Left simple mastectomy. COMPLICATIONS None. CONDITION Stable. BLOOD LOSS Minimal. FINDINGS I removed one sentinel lymph node from the right axilla, and frozen section then indicated there was no cancer in that lymph node. SPECIMENS 1. Right axillary sentinel lymph node. 2. Right breast. 3. Left breast. INDICATIONS This is a 41-year-old female who was referred to my office with a very large upper-outer quadrant right breast cancer. She underwent neoadjuvant chemotherapy due to the size of the cancer and its proximity to the chest wall, and she had a great response to the chemotherapy. In fact, the mass was no longer palpable when I saw her in the office recently. The options for surgery were explained in detail to her. I recommended at least a right mastectomy with a sentinel lymph node excision in the right axilla, and I discussed immediate or delayed reconstruction and prophylactic left mastectomy. She saw the plastic surgeons down in [place], but ultimately decided for bilateral mastectomy and a right sentinel lymph node excision, and she would worry about reconstruction potentially later after she has completely healed. DESCRIPTION OF PROCEDURE The patient was brought to the operating room and placed supine on the operating table. LMA anesthesia was administered. I cleaned her right areolar margin with alcohol and injected 5 mL of Lymphazurin into the dermis. Her entire right and left breasts, chest, her right axilla, and the arm were circumferentially prepped and draped in a sterile fashion. Timeout was completed. I then used the gamma probe and identified an area of gamma output in the right axilla and then made an incision in the right axilla after injecting with 0.5% ropivacaine plain. I dissected through the dermis and subcutaneous fat and down through clavipectoral fascia into the axillary contents while using the gamma probe to guide me. Ultimately, I was able to relatively easily identify the axillary lymph node which was stained blue-green from the Lymphazurin and also had gamma output. This was easily removed, and ex vivo gamma output was 2600, which is over 10 times baseline. I did not find any other sentinel nodes in the armpit. This was sent to Pathology for frozen section. I then proceeded with the right mastectomy and marked the skin. I then anesthetized the skin with 0.5% ropivacaine plain. I made an elliptical incision to encompass the nipple-areolar complex and dissected through the dermis and subcutaneous fat. I then made subcutaneous flaps up to the clavicle , medial to the sternum, inferior to the top of the rectus abdominis muscles, and then lateral to the pectoralis muscle. I then peeled the pectoralis major fascia off the muscle, and this was the posterior margin of the breast. I then dissected this free from medial to lateral, and then the breast was removed from the wound and marked with a short silk stitch on the superior margin and a long silk stitch laterally. This was sent to pathology. By this time, we had gotten the frozen section results, and there was no obvious cancer in the sentinel lymph node. I then packed the right chest with moist lap sponge and moved over to the left side. The exact same operation was done on the left side in terms of the mastectomy. No axillary procedure was performed on the left side. The breast was marked in the same way and sent to Pathology. I made sure both wounds were hemostatic, and they were irrigated and dried. I placed a single 10 mm flat Vijay-Estrada drain in the left chest and two of them in the right one going medial over the chest wall and one heading into the right axilla. Both of these incisions were closed with interrupted 3-0 Vicryl deep dermal sutures and 4-0 Monocryl running subcuticular sutures. The axillary incision was closed with interrupted 3-0 Vicryl deep sutures to close the clavipectoral fascia and the subcutaneous fat, and then the skin was closed with running 4-0 Monocryl subcuticular sutures. The skin was cleaned and dried. Steri-Strips were applied over all three incisions, followed by sterile surgical dressings, and then drains were dressed with drain dressings. The patient was then awakened and extubated in the operating room and transported to the recovery room in stable condition having tolerated the procedure without any apparent problems. SHEA
[2017-09-17] MEDS: FAMOTIDINE 20 MG TAB PO SCH (20:37)
[2017-09-17] MEDS: DOCUSATE SODIUM 100 MG CAP PO SCH (20:37)
[2017-09-18 02:39] VITALS: BP 92/68
[2017-09-18 04:26] VITALS: BP 94/62
[2017-09-18 06:40] VITALS: BP 98/61
[2017-09-18 07:14] VITALS: BP 92/64
[2017-09-18] MEDS ORDERED: PER PO (08:38)
[2017-09-18] MEDS ORDERED: DOCU-202 PO (08:38)
[2017-09-18] MEDS: DOCUSATE SODIUM 100 MG CAP PO SCH (08:41)
[2017-09-18] MEDS: FAMOTIDINE 20 MG TAB PO SCH (08:41)
--- NOTE | 2017-09-18 08:56 | Short(Outpt) Discharge Summary ---
Discharge Summary Reason for Hosp/Final Diag: (1) Breast cancer, right Status: Chronic Hospital Course & Plan: 09/18/17: POD#1 s/p bilateral mastectomy, right axillary SLN bx. Doing well. Bruising on right chest but good capillary refill in the skin. Dressings all look good. CHRISTINA drain teaching completed by RN. Will d/c to home with f/u in the office to remove drains. Departure Discharge to: Home, Self Care Discharge Instructions Home Meds Active Scripts Oxycodone/Acetaminophen (OXYCODONE/ACETAMINOPHEN 5MG/325 MG) 5 Mg/325 Mg Tab, 1- 2 TAB PO Q4H Y for MODERATE PAIN, #30 TAB 0 Refills Prov:JOHANNE ARRIAGA MD 09/18/17 Docusate Sodium (DOCUSATE SODIUM) 100 Mg Capsule, 1 CAP PO BID, #30 CAPSULE 0 Refills Prov:JOHANNE ARRIAGA MD 09/18/17 Lidocaine (Lidocaine) 5 % Cream..g., 1 ANTONETTE TOP ONCE, #1 TUBE 0 Refills Apply cream to your right nipple and surrounding skin 2 hours before coming to the hospital, cover with gauze and tape Prov:JOHANNE ARRIAGA MD 09/09/17 Reported Medications Guaifen/Phenyleph/Acetaminophn (MUCINEX FAST-MAX COLD-SINUS TB) 1 Each Tablet, 1 EACH PO BID 09/14/17 Acetaminophen (TYLENOL EXTRA STRENGTH) 500 Mg Tablet, 500 MG PO PRN Y for PAIN, TAB 08/19/17 Discontinued Scripts Cephalexin 500 Mg Tab (KEFLEX 500 MG TAB) 500 Mg Tablet, 500 MG PO BID for 10 Days, #20 TAB Prov:TRAVON WHITE CANCER RESEARCHER-BC, ONC 08/26/17 Follow up Referrals: General Surgery - 09/29/17 @ Surgery, General with Johanne Arriaga Md You have a follow up appointment scheduled with Dr. Arriaga on 09/29/17, at 4:30pm. Diet: Regular Activity: As Tolerated Special Instructions: You may remove the white surgical dressings on 09/19/17, then you can shower. After showering, leave the incisions open to air but replace the drain dressings. Avoid any activity that involves raising your arms above the level of your shoulds or behind your back. Keep a journal of how much you drain from the drains and bring this to your follow up appointment. Problem Qualifiers (1) Breast cancer, right: Breast location: upper outer quadrant of breast Estrogen receptor status: positive Patient sex: female Qualified Codes: C50.411 - Malignant neoplasm of upper-outer quadrant of right female breast; Z17.0 - Estrogen receptor positive status [ER+] JOHANNE ARRIAGA MD Sep 18, 2017 08:56
[2017-09-18 10:57] VITALS: BP 99/54
== END 2017-09-18 08:37 | disposition home or self-care (01) ==
LOC: OR 00:42 → MED 14:20
PROVIDERS: ADMIT Surgery; ATTEND Surgery
DX: C50.911 Malignant neoplasm of unspecified site of right female breast (principal)
CPT/HCPCS: 19307; 36415; 78195; 84703; 85025; 88305; 88309; 88331; 97161; 97535; A9541; G0378; J0690; J1100; J2001; J2250; J2405; J2704; J2795; J3010; J3490; Q9968; 82310; 82374; 82435; 82565; 82947; 84132; 84295; 84520; 88344

== ENCOUNTER 2017-12-09 11:45 | Outpatient (RCR) | payer BC, MEDICAID ==
[~2017-12-09 11:45] MED LIST changes: +ACET-1966 PO; +DOCU-202 PO; +IBUP-136 PO; +PER PO
--- NOTE | 2017-12-09 15:15 | PT PLAN OF CARE ---
Physician: Tawanda Quiroz MD Patient is being seen: 1x/MO Therapist: Starla Hale, PT, DPT, CLT Medical Diagnosis: Right Breast Cancer Treatment Diagnosis: Right Breast Cancer Date of Onset: 02/19/17 Date of Initial Evaluation: 04/15/17 Date patient was last seen: 12/09/17 Number of treatments: 7 Number of cancellations/No shows: 0 INTERVENTIONS: Manual Therapy/STM/MET Strengthening/condition Ice/Heat Range of Motion Spinal Stabilization Ultrasound Stretching Iontophoresis Neuromuscular Re-ed Closed Chain Program Electrical Stim Posture/Body mechanics Gait Trg/Balance Trg Biofeedback Home Exercise Program Mech./Manual Traction Therapeutic Activities Pelvic Floor GOALS: Treatment Goals: In 3 months pt will maintain FACT-G score of greater than 80/108 indicating maintenance of functional well-being. MET In 3 months pt will maintain ECOG performance status of 0 indicating maintenance of function and activity level. MET In 3 months pt will maintain UE ROM and strength to full ROM and MMT >4/5 for maintenance of functional status for performance of ADL's. MET In 6 months pt will maintain FACT-G score of greater than 80/108 indicating maintenance of functional well-being. MET In 6 months pt will maintain ECOG performance status of 0 indicating maintenance of function and activity level. MET In 6 months pt will maintain UE ROM and strength to full ROM and MMT >4/5 for maintenance of functional status for performance of ADL's. MET Survivorship Goals: In 1 MO pt will increase hip strength to 4+/5 or greater in each major muscle group for improved function with ADL's. In 1 MO pt will improve FACT-G score to >88/108 for return to prior level of function with well-being and ADL's. In 2 MO pt will improve UE strength to 5/5 for improved function with ADL's. In 2 MO pt will be compliant with HEP for improved function with ADL's and maintenance of functional status with survivorship. PATIENT'S GOAL: Return to prior level of function with ADL's, improve strength. Status of Patient's Goals: Treatment Goals: 66 MET, Survivorship Goals: In Progress Patient Compliance: Good Prognosis: Good Reasons for continuing therapy: Following the competition of both chemotherapy as well as surgical intervention, pt shows generalized weakness in both UE and LE compared to prior level of function. Post surgical intervention pt has excellent UE mobility without restrictions except occasional stretch. However, pt shows increased postural deficits resulting in rounded shoulders and forward head. Secondary to pt traveling, pt was initiated on an independent strengthening program for progression towards return to function. PT will correspond with pt on recovery process and referral will be made to PT in [place] if compliance is poor or pain becomes present. Pt is to be re-assessed in 1 MO upon follow up for any change in HEP or progression. ROM: UE ROM: Full without restrictions or pain Strength: UE MMT B: Shoulder: Flexion: L: 4/5, R 4+/5, Ext: B 4+/5, Abd: B 4+/5 , IR: B 4+/5, ER: L 4+/5, R 4/5. Elbow: Flexion/Ext: B 4+/5 LE MMT: Hip: Flexion: L 4/5, R 4+/5, Ext: B 4/5, Abd: B 5/5, Add: B 4+/5. Knee: Flexion/Ext: B 4+/5, Ankle: PF: L 4/5, R 4+/5, DF: B 5/5 3 Finger Pinch [place] [employer] Developer: EVAL: L 18#, R 20#, 12/09/17: R 16#, 18# Special Tests: ECOG Performance Status: Grade 0 FACT-G Scores: 04/15/17 Eval: PWB: 28/28, SWB: 22, EWB: , FWB:, Total Score: 88/108. FACT- G Scores: 05/13/17: PWB: 26/28, SWB: 23/, EWB: , FWB:, Total Score: 90/108. FACT- G Scores: 06/10/17: PWB: 21/28, SWB: 26/28, EWB: , FWB:, Total Score: 86/108. FACT-G Scores: 07/08/17: PWB: 22/28, SWB: 16/, EWB: , FWB:, Total Score: 78/108. FACT-G Scores: 08/19/17: PWB: 22/28, SWB: 16/, EWB: , FWB:, Total Score: 78/108. FACT-G Scores: 12/09/17: PWB: 22/, SWB: 24.11/30, EWB: , FWB:20.11/30, Total Score: 83/108. If you have any questions or concerns, please feel free to contact me at . Thank you, Starla Hale, PT, DPT, CLT MTDD
[2018-01-18] MEDS ORDERED: TAMO20TA24 PO (16:45)
--- NOTE | 2018-01-21 08:40 | PT PLAN OF CARE ---
Physician: JUAN Mccracken Patient is being seen: 1-2x/MO Therapist: Starla Hale, PT, DPT, CLT Medical Diagnosis: Right Breast Cancer Treatment Diagnosis: Right Breast Cancer Date of Onset: 02/19/17 Date of Initial Evaluation: 04/15/17 Date patient was last seen: 01/20/18 Number of treatments: 8 Number of cancellations/No shows: 0 INTERVENTIONS: Manual Therapy/STM/MET Strengthening/condition Ice/Heat Range of Motion Spinal Stabilization Ultrasound Stretching Iontophoresis Neuromuscular Re-ed Closed Chain Program Electrical Stim Posture/Body mechanics Gait Trg/Balance Trg Biofeedback Home Exercise Program Mech./Manual Traction Therapeutic Activities Pelvic Floor GOALS: Treatment Goals: In 3 months pt will maintain FACT-G score of greater than 80/108 indicating maintenance of functional well-being. MET In 3 months pt will maintain ECOG performance status of 0 indicating maintenance of function and activity level. MET In 3 months pt will maintain UE ROM and strength to full ROM and MMT >4/5 for maintenance of functional status for performance of ADL's. MET In 6 months pt will maintain FACT-G score of greater than 80/108 indicating maintenance of functional well-being. MET In 6 months pt will maintain ECOG performance status of 0 indicating maintenance of function and activity level. MET In 6 months pt will maintain UE ROM and strength to full ROM and MMT >4/5 for maintenance of functional status for performance of ADL's. MET Survivorship Goals: In 1 MO pt will increase hip strength to 4+/5 or greater in each major muscle group for improved function with ADL's. In 1 MO pt will improve FACT-G score to >88/108 for return to prior level of function with well-being and ADL's. In 2 MO pt will improve UE strength to 5/5 for improved function with ADL's. In 2 MO pt will be compliant with HEP for improved function with ADL's and maintenance of functional status with survivorship. PATIENT'S GOAL: Return to prior level of function with ADL's, improve strength. Status of Patient's Goals: Treatment Goals: 6 MET, Survivorship Goals: In Progress Patient Compliance: Good Prognosis: Good Reasons for continuing therapy: Kevalin shows signs and symptoms consistent with a mid lumbar posterior derangement with radicular symptoms down the L leg to the level of the ankle. Following assessment pain was able to be centralized to the L PSIS and lumbar spine only with repeated extension as well as was decreased in intensity. Pt is to continue with HEP and contact PT if pain increases again. 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 ROM: UE ROM: Full without restrictions or pain Strength: UE MMT B: Shoulder: Flexion: L: 4/5, R 4+/5, Ext: B 4+/5, Abd: B 4+/5 , IR: B 4+/5, ER: L 4+/5, R 4/5. Elbow: Flexion/Ext: B 4+/5 LE MMT: Hip: Flexion: L 4/5, R 4+/5, Ext: B 4/5, Abd: B 5/5, Add: B 4+/5. Knee: Flexion/Ext: B 4+/5, Ankle: PF: L 4/5, R 4+/5, DF: B 5/5 3 Finger Pinch Site Interpreter: EVAL: L 18#, R 20#, 12/09/17: R 16#, 18# Special Tests: ECOG Performance Status: Grade 0 FACT-G Scores: 04/15/17 Eval: PWB: 28/28, SWB: 22/, EWB: , FWB:, Total Score: 88/108. FACT- G Scores: 05/13/17: PWB: 26/28, SWB: 23/28, EWB: , FWB:, Total Score: 90/108. FACT- G Scores: 06/10/17: PWB: 21/28, SWB: 26/28, EWB: , FWB:, Total Score: 86/108. FACT-G Scores: 07/08/17: PWB: 22/28, SWB: 16/28, EWB: , FWB:, Total Score: 78/108. FACT-G Scores: 08/19/17: PWB: 22/28, SWB: 16/28, EWB: , FWB:, Total Score: 78/108. FACT-G Scores: 12/09/17: PWB: , SWB: 24.11/30, EWB: , FWB:20.11/30, Total Score: 83/108. If you have any questions or concerns, please feel free to contact me at [phone]. Thank you, Starla Hale, PT, DPT, CLT MTDD
== END 2018-03-09 ==
LOC: PT 11:45
PROVIDERS: ATTEND Internal Medicine Hematology
DX: C50.911 Malignant neoplasm of unspecified site of right female breast (principal); R53.83 Other fatigue; M62.81 Muscle weakness (generalized)

== ENCOUNTER 2018-01-20 10:30 | Outpatient (RCR) | payer MEDICAID ==
[2017-10-28 12:55] VITALS: BP 104/72
[2017-10-28 15:31] VITALS: BP 131/65
--- NOTE | 2017-10-28 19:39 | ONCOLOGY FOLLOW UP NOTE ---
EVENT DATE: October 28, 2017 REASON FOR FOLLOWUP Multicentric ER/KS positive high grade right breast cancer. INTERIM HISTORY Nahum returns to clinic for a follow-up visit today. She is accompanied by her significant other. Since our last visit together, she has completed her weekly paclitaxel, and she has subsequently gone for bilateral mastectomies with Dr. Krishnan. She reports that she did well with her surgery. She did have two episodes of near-syncope at home while taking a shower early in her postoperative course, but this has not recurred. She reports no significant pain today. She denies fever. Her appetite is pretty good. She has returned to work on a more limited schedule, with more limited duties. She has had no shortness of breath, chest pain, or productive cough. She denies abdominal pain and changes in her bowel habits. She has had no nausea. She does feel tired, but this seems to be improving. REVIEW OF SYSTEMS Otherwise negative, and all systems were reviewed. ONCOLOGY HISTORY 1. 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 a. Initial breast imaging in [place], [place] for palpable lump in right breast. b. Bilateral diagnostic mammogram and whole right breast ultrasound performed on February 19. Mammogram shows scattered fibroglandular tissue in multiple groups of suspicious microcalcifications involving the entire upper/outer quadrant of the right breast. Ultrasound of the right breast reveals, amongst other findings, a lobular, solid, vascular mass measuring about 4 cm from the nipple with multiple punctate echogenic foci consistent with calcifications. This finding was highly suspicious for malignancy. Also, 3 cm from the nipple at 10 o'clock there was a complex solid nodule. At 11 o'clock, about 1 cm from the nipple there was a lobular vascular oval mass. c. March 01: Breast MRI reveals areas of ductal enhancement consistent with adenosis of the left breast as well as multiple benign cystic lesions. There was extensive involvement of the right breast from approximately 8 to 11 o' clock with suspicious enhancement highly suggestive of diffuse malignancy. This area extended from the chest wall to the retroareolar region. There was no evidence of adenopathy in the axillary regions. There was contrast enhancement extending to the chest wall, but no definitive chest wall invasion as detected. d. February 27: Patient subsequently undergoes biopsies of two separate areas of the right breast. First biopsy consistent with invasive ductal carcinoma, moderately or poorly differentiated (grade 3/3), 3 mm in greatest dimension with extensive intermediate grade DCIS, solid type with necrosis and microcalcification. 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 e. March 23: Bone scan reveals relatively diffuse sternal and manubrial localization that is likely reactive or inflammatory in nature; no definite osseous metastatic pattern. f. February 20: CT scan of chest, abdomen and pelvis reveals at least four noncalcified pulmonary nodules seen in the lungs, with largest measuring 6 mm in diameter. Possible noncalcified granulomas; there are small calcified mediastinal lymph nodes. Right breast masses were noted consistent with her history of breast cancer. 8 mm round hypoattenuating lesion in the medial segment of the left lobe of the liver which is too small to characterize. Sclerosis along left-sided L5 vertebral body which could be degenerative, as a mildly bulging disk was present at this level. g. MRI abdomen reveals that the 8 mm hypoattenuating lesion on CT is consistent with a cyst. h. Oncotype DX testing has returned with a recurrence score of 10. BRCA1 and 2 currently pending. i. Patient is status post dose dense AC. j. Patient completes weekly Taxon infusions (12 cycles total). k. September 17, 2017: Patient undergoes bilateral mastectomies with right axillary sentinel lymph node biopsy. Pathology from right mastectomy reveals infiltrating ductal carcinoma, grade 2, with areas of invasive carcinoma that are minute and focal. The area of DCIS measures 1.3 x 0.9 x 0.9 cm. The DCIS measures 4 mm away from the lateral surgical margin. Extensive areas of intermediate grade ductal carcinoma in situ are seen. Lymphovascular invasion was negative. [place] lymph node biopsy was negative. Left breast revealed some ductal hyperplasia and fibrocystic change with microcalcifications. Tissue from right breast revealed estrogen receptor positivity at 94.4%, and progesterone receptor positivity. HER2/grecia is not overexpressed, and Ki-67 was 3%. l. BRCA1 and 2 testing is negative from March 18, 2017. PAST MEDICAL HISTORY Patient is otherwise healthy, with the exception of written history to indicate a possible "hole" in her esophagus in 2009 and 2014. No prior primary care notes are currently available. CURRENT MEDICATIONS Tylenol p.r.n. ALLERGIES No known drug allergies. SOCIAL HISTORY Patient is single, recently . She has children ages 24, 21, and 8. 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 She is a nondrinker and nonsmoker. There is no history of illicit drug use. VITAL SIGNS Temperature 97.6, blood pressure 104/72, heart rate is 67, respirations 16, oxygen saturation is 97% on room air. Weight is 84.7 kg. PHYSICAL EXAMINATION GENERAL: Patient is alert and oriented times three, in no apparent distress sitting in the exam room chair. HEENT: Exam reveals some diffuse alopecia and anicteric sclerae. NEUROLOGIC: Exam is grossly nonfocal and her gait is normal. EXTREMITIES: Exam reveals no edema, clubbing or cyanosis. There is erythema or tenderness to palpation of the extremities. LABORATORY STUDIES Reviewed per the [facility] record. PATHOLOGY Please see the oncologic history. ASSESSMENT AND PLAN Multicentric ER positive right breast cancer. Nahum has now completed neoadjuvant chemotherapy, as well as bilateral mastectomies. As discussed today , prior BRCA1 and 2 testing was negative. We spent a good deal of time today discussing her surgical pathology report. There was extensive DCIS noted within the right breast, but invasive ductal carcinoma components were small and focal. Margins were negative. Her sentinel lymph node biopsy was also negative. She was happy to hear this. We spent time today discussing next steps. I have recommended that her case again be presented at the upcoming [facility] Tumor Board. Nahum is premenopausal, but she has not had a menstrual cycle for several months, basically since starting chemotherapy. She has her ovaries. We discussed her options moving forward for additional adjuvant therapy. Given her negative margins on the mastectomy specimen, and the negative sentinel lymph node, I have not recommended that she consider radiation therapy, but again this will be reviewed by the board. We moved on to discuss adjuvant endocrine therapy, and at this point, she does need some additional time to recover from her surgery before embarking on endocrine therapy. I have asked her to return in four to six weeks for final recommendations, but we did discuss her options today. These include tamoxifen alone, as well as aromatase inhibitor therapy with ovarian ablation. We spent some additional time discussing prognosis, and expectations moving forward. All in all, Nahum seems to be doing well considering the circumstances. She had several additional questions for me today, and I believe I answered all of her questions to her satisfaction. I will see her again in four to six weeks. I spent a total of 30 minutes of time face to face with the patient and her significant other today, and 25 minutes of this was spent in direct counseling and coordination of care. SHEA
[2017-12-09 10:28] VITALS: BP 107/72
--- NOTE | 2017-12-09 14:53 | ONCOLOGY FOLLOW UP NOTE ---
EVENT DATE: December 09, 2017 REASON FOR FOLLOWUP Multicentric ER/NH positive high grade right breast cancer. INTERIM HISTORY Nahum returns to clinic for a follow-up visit today. She is accompanied by family. Since our last visit, she has been feeling pretty well in general. She has had some stiffness in her hips, but she has not been getting much physical activity, and she has gained weight. She reports no fever. She has had no shortness of breath, chest pain, or cough. She would like to get her port out. Her appetite is good. She has had no new bowel or bladder symptoms. REVIEW OF SYSTEMS Otherwise negative, and all systems were reviewed. ONCOLOGY HISTORY 1. Multifocal invasive ductal carcinoma of the right breast, ER/NH positive. a. Initial breast imaging in [place], [place] for palpable lump in right breast. b. Bilateral diagnostic mammogram and whole right breast ultrasound performed on February 19. Mammogram shows scattered fibroglandular tissue in multiple groups of suspicious microcalcifications involving the entire upper/outer quadrant of the right breast. Ultrasound of the right breast reveals, amongst other findings, a lobular, solid, vascular mass measuring about 4 cm from the nipple with multiple punctate echogenic foci consistent with calcifications. This finding was highly suspicious for malignancy. Also, 3 cm from the nipple at 10 o'clock there was a complex solid nodule. At 11 o'clock, about 1 cm from the nipple there was a lobular vascular oval mass. c. March 01: Breast MRI reveals areas of ductal enhancement consistent with adenosis of the left breast as well as multiple benign cystic lesions. There was extensive involvement of the right breast from approximately 8 to 11 o' clock with suspicious enhancement highly suggestive of diffuse malignancy. This area extended from the chest wall to the retroareolar region. There was no evidence of adenopathy in the axillary regions. There was contrast enhancement extending to the chest wall, but no definitive chest wall invasion as detected. d. February 27: Patient subsequently undergoes biopsies of two separate areas of the right breast. First biopsy consistent with invasive ductal carcinoma, moderately or poorly differentiated (grade 3/3), 3 mm in greatest dimension with extensive intermediate grade DCIS, solid type with necrosis and microcalcification. 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 e. March 23: Bone scan reveals relatively diffuse sternal and manubrial localization that is likely reactive or inflammatory in nature; no definite osseous metastatic pattern. f. February 20: CT scan of chest, abdomen and pelvis reveals at least four noncalcified pulmonary nodules seen in the lungs, with largest measuring 6 mm in diameter. Possible noncalcified granulomas; there are small calcified mediastinal lymph nodes. Right breast masses were noted consistent with her history of breast cancer. 8 mm round hypoattenuating lesion in the medial segment of the left lobe of the liver which is too small to characterize. Sclerosis along left-sided L5 vertebral body which could be degenerative, as a mildly bulging disk was present at this level. g. MRI abdomen reveals that the 8 mm hypoattenuating lesion on CT is consistent with a cyst. h. Oncotype DX testing has returned with a recurrence score of 10. BRCA1 and 2 currently pending. i. Patient is status post dose dense AC. j. Patient completes weekly Taxol infusions (12 cycles total). k. September 17, 2017: Patient undergoes bilateral mastectomies with right axillary sentinel lymph node biopsy. Pathology from right mastectomy reveals infiltrating ductal carcinoma, grade 2, with areas of invasive carcinoma that are minute and focal. The area of DCIS measures 1.3 x 0.9 x 0.9 cm. The DCIS measures 4 mm away from the lateral surgical margin. Extensive areas of intermediate grade ductal carcinoma in situ are seen. Lymphovascular invasion was negative. [place] lymph node biopsy was negative. Left breast revealed some ductal hyperplasia and fibrocystic change with microcalcifications. Tissue from right breast revealed estrogen receptor positivity at 94.4%, and progesterone receptor positivity. HER2/grecia is not overexpressed, and Ki-67 was 3%. l. BRCA1 and 2 testing is negative from March 18, 2017. PAST MEDICAL HISTORY Patient is otherwise healthy, with the exception of written history to indicate a possible "hole" in her esophagus in 2009 and 2014. No prior primary care notes are currently available. CURRENT MEDICATIONS Tylenol p.r.n. ALLERGIES No known drug allergies. SOCIAL HISTORY Patient is single, recently . She has children ages 24, 21, and 8. 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 She is a nondrinker and nonsmoker. There is no history of illicit drug use. VITAL SIGNS Temperature 96.8, blood pressure 107/72, heart rate is 80, respirations 16, oxygen saturation is 95% on room air. Weight is 87.8 kg. PHYSICAL EXAMINATION GENERAL: Patient is alert and oriented times three, in no apparent distress sitting in the exam room chair. She appears healthy. She is in good spirits. Her hair has grown back. HEENT: Exam reveals anicteric sclerae. NEUROLOGIC: Exam is grossly nonfocal and her gait is normal. EXTREMITIES: Exam reveals no edema, clubbing or cyanosis. SKIN: Exam is unremarkable for concerning rash or lesion. LABORATORY STUDIES Reviewed per the [facility] record. ASSESSMENT AND PLAN Multicentric ER positive right breast cancer. Nahum is doing quite well, all things considered. She has now completed neoadjuvant chemotherapy as well as bilateral mastectomies. She has recovered nicely from her surgery. She would like to have her port out, and I think this is entirely reasonable. She will be seeing Dr. Krishnan in consultation later today. The patient has been doing some reading on adjuvant endocrine therapy. We discussed her options. These include tamoxifen alone, likely for 10 years. Other options include tamoxifen with ovarian suppression or an aromatase inhibitor with suppression. Although she did appear to have a high grade breast cancer from pathology review, her Ki- 67 was low, and she did have clinical evidence of response to chemotherapy in the neoadjuvant setting. With further discussion today, we have decided for her to start tamoxifen alone. We spent time discussing tamoxifen side effects. She will receive education materials today, as well. I would prefer that she follow up in the next four to six weeks with Delia, nurse practitioner, here at the [facility]. I will plan to see her back in three months for followup, or sooner if there are questions or concerns. SHEA
[~2018-01-20 10:30] MED LIST changes: +ALTEPLASE RECOMB 2 MG VIAL IVP PRN; +DEXTROSE 5%(*) 100 ML BAG 100 ML IVPB PRN; +HEPARIN FLSH (PORT) 500 UN/5ML IVP PRN; +LIDOCAINE/SOD BICARB 8.4% SYR ID PRN; +NS(*) 0.9% 100 ML BAG 100 ML IVPB PRN; +NS(*) 0.9% 500 ML BAG 500 ML IV PRN; +TAMO20TA24 PO; +WATER FOR INJ,STERILE 20 ML IVP PRN
--- NOTE | 2018-01-20 12:09 | Oncology Progress Note ---
History of Present Illness Evaluation Evaluation Date: Jan 20, 2018 Evaluation Time: 11:30 Accompanied by Accompanied by: Daughter, 8 year old son, and 4 year old grandaughter. 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 a. Initial breast imaging in [place], [place] for palpable lump in right breast. b. Bilateral diagnostic mammogram and whole right breast ultrasound performed on February 19. Mammogram shows scattered fibroglandular tissue in multiple groups of suspicious microcalcifications involving the entire upper/outer quadrant of the right breast. Ultrasound of the right breast reveals, amongst other findings, a lobular, solid, vascular mass measuring about 4 cm from the nipple with multiple punctate echogenic foci consistent with calcifications. This finding was highly suspicious for malignancy. Also, 3 cm from the nipple at 10 o'clock there was a complex solid nodule. At 11 o'clock, about 1 cm from the nipple there was a lobular vascular oval mass. c. March 01: Breast MRI reveals areas of ductal enhancement consistent with adenosis of the left breast as well as multiple benign cystic lesions. There was extensive involvement of the right breast from approximately 8 to 11 o' clock with suspicious enhancement highly suggestive of diffuse malignancy. This area extended from the chest wall to the retroareolar region. There was no evidence of adenopathy in the axillary regions. There was contrast enhancement extending to the chest wall, but no definitive chest wall invasion as detected. d. February 27: Patient subsequently undergoes biopsies of two separate areas of the right breast. First biopsy consistent with invasive ductal carcinoma, moderately or poorly differentiated (grade 3/3), 3 mm in greatest dimension with extensive intermediate grade DCIS, solid type with necrosis and microcalcification. 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 e. March 23: Bone scan reveals relatively diffuse sternal and manubrial localization that is likely reactive or inflammatory in nature; no definite osseous metastatic pattern. f. February 20: CT scan of chest, abdomen and pelvis reveals at least four noncalcified pulmonary nodules seen in the lungs, with largest measuring 6 mm in diameter. Possible noncalcified granulomas; there are small calcified mediastinal lymph nodes. Right breast masses were noted consistent with her history of breast cancer. 8 mm round hypoattenuating lesion in the medial segment of the left lobe of the liver which is too small to characterize. Sclerosis along left-sided L5 vertebral body which could be degenerative, as a mildly bulging disk was present at this level. g. MRI abdomen reveals that the 8 mm hypoattenuating lesion on CT is consistent with a cyst. h. Oncotype DX testing has returned with a recurrence score of 10. BRCA1 and 2 currently pending. i. Patient is status post dose dense AC. j. Patient completes weekly Taxol infusions (12 cycles total). k. September 17, 2017: Patient undergoes bilateral mastectomies with right axillary sentinel lymph node biopsy. Pathology from right mastectomy reveals infiltrating ductal carcinoma, grade 2, with areas of invasive carcinoma that are minute and focal. The area of DCIS measures 1.3 x 0.9 x 0.9 cm. The DCIS measures 4 mm away from the lateral surgical margin. Extensive areas of intermediate grade ductal carcinoma in situ are seen. Lymphovascular invasion was negative. [place] lymph node biopsy was negative. - Left breast revealed some ductal hyperplasia and fibrocystic change with microcalcifications. - Tissue from right breast revealed estrogen receptor positivity at 94.4%, and progesterone receptor positivity. HER2/grecia is not overexpressed, and Ki-67 was 3%. l. BRCA1 and 2 testing is negative from March 18, 2017. Treatment Treatment 2017 Patient completes weekly Taxol infusions (12 cycles total). - September 17, 2017: Patient undergoes bilateral mastectomies with right axillary sentinel lymph node biopsy. Pathology from right mastectomy reveals infiltrating ductal carcinoma, grade 2, with areas of invasive carcinoma that are minute and focal 12/2017 Port removal. 12/10/2017 Patient Initiates Tamoxifen 20mg PO Daily. HPI HPI Mrs. Balaji Sidhu is a 42 year old woman who has Multicentric ER/CO positive high grade right breast cancer. She initiated Tamoxifen 20mg PO daily (12/10/2017 ). s/p Taxol infusions (12 cycles total) and bilateral mastectomies with right axillary sentinel lymph node biopsy (09/17/2017). Patient presents to the cancer center today accompany by her family to o follow-up on her treatment. She reports being in her usual state of health. She informs me that she experiences hot flashes daily that lasts for less than a minute since started on tamoxifen, but nothing that interferes with her daily ADLs, or quality of life. on physical exam there is LUQ with bulging fluid collection type from beneath the left posterior costal margin. moderated CVA tenderness on the posterior left flank. She reports pain level 5 (0-10 scale) on the left upper quadrant that started approximately 6 weeks ago, but has gotten worse in the last 2 weeks or so. Pain is not clearly described by patient but alleviated by 600mg of Ibuprofen BID. She Denies Early Satiety, no anorexia, no feeling of abdominal fullness or heaviness. patient also reports pain (level 3-5, on a 0- 10 scale) with numbness sensation on the left side of her body including legs, ankle, hips. 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 No bruits on auscultation of the abdomen, normal bowel sounds. No fevers, chills, night sweats, bruising, SOB, no cardiac type chest pain, no edema, no SOB, no changes in bowel or bladder pattern. Significant past medical history of written history to indicate a possible "hole" in her esophagus in 2009 and 2014. Living Conditions Lives with her family, daughter, as good support system. Social/Occupational History Social History: Social History This is a 42 Yr old White female, she is U Unknown and has [] Children Hx Smoking: No Smoking Status: Never Smoker Exposure to Second Hand Smoke?: No Allergies & Medications Allergies: Coded Allergies: No Known Drug Allergies (Unverified , 09/14/17) Home Meds Reported Medications Tamoxifen Citrate (TAMOXIFEN CITRATE) 20 Mg Tablet, 20 MG PO DAILY Start Date: 01/18/18 Ibuprofen (IBUPROFEN) 200 Mg Capsule, 1 CAP PO PRN for PAIN, CAPSULE 12/09/17 Review of Systems Constitution: Denies Appetite/Weight Change, Denies Fever/Chills/Sweating, Denies Recent Infection, Denies Other HEENT: No EARS: Tinnitus, No NOSE: Nasal Discharge, No THROAT: Sore Throat, No EYES: Dipolpia, No EARS: Hearing Problems, No NOSE: Epistaxis, No THROAT: Mouth Ulcers, No EYES: Vision Change, No OTHER Respiratory: No Cough, No Expectoration, No Hemoptysis, No Shortness of Breath , No OTHER Cardiovascular: No Chest Pain, No Orthopnea, No Edema, No Palpitations, No OTHER Gastrointestinal: Heart Burn, Abdominal Pain Gentiourinary: No Hematuria, No Dysuria, No Nocturia, No Other Musculoskeletal: Muscle Pain Hematological: No Bleeding, No Weakness, No Enlarged Lyph Nodes, No Bruising, No Fatigue, No Other Skin: Dry Skin, Moist Skin Psychiatric: Anxiety Vital Signs Vital Signs Temperature: 97.8 Pulse: 72 BP Systolic: 105 BP Diastolic: 71 Respiratory Rate: 16 O2 SAT: 96% Room Air. O2 Delivery: Height (feet) Height (inches) 64.00 Weight lb: 186 Weight oz: Weight Kg (Antonino): [id number] Pain: 0 Physical Exam General: Looks Stable, Well Developed, Well Nourished HEENT: HEAD:Atraumatic, No EYES: Conjuctivitis, No EYES: Icterus, No MOUTH: Mucocitis, No MOUTH: Oral Thrush, No SINUS: Tenderness to Palpation, No Other Neck: Supple, No Cervical Lymphadenopathy, No Subclavicular Lymphadopathy, No Thyromegaly, No Other Lungs: Clear to Auscultation, Percussion Bilaterally Heart: Regular Rate and Rhythm, No Gallops, No Murmurs, No Clicks, No Rubs, No Other Abdomen: Hepatosplenomegaly (LUQ pain) Extremities: No Cyanosis, No Clubbing, No Edema, No Other Lymphatics: No Peripheral Lymphadenopathy, No Other Psychiatric: Mood appears normal, Affect appears normal Skin: No Skin Rashes, No Bruising, No Purpura, No Moist Desquamation, No Dry Desquamation, No Errythema, No Mild Errythema, No Moderate Errythema, No Severe Errythema, No Induration, Other (Hyperpigmented fingernails, and ONychomycosis of toenails) Breast: Other (Palpable left scar tissue.) Assessment and Plan Assessment and Plan Mrs. Balaji Sidhu is a 42 year old woman who has Multicentric ER/CO positive high grade right breast cancer. She initiated Tamoxifen 20mg PO daily (12/10/2017 ). s/p Taxol infusions (12 cycles total) and bilateral mastectomies with right axillary sentinel lymph node biopsy (09/17/2017). DIAGNOSTIC DATA CBC,CMP within normal limits except AST is 36 1. Multicentric ER positive right breast cancer. Nahum has now completed neoadjuvant chemotherapy, as well as bilateral mastectomies. and initiated tamoxifen on 12/10/2017. tolerating very well, with minor hot flashes daily. prior BRCA1 and 2 testing was negative. her surgical pathology report. There was extensive DCIS noted within the right breast, but invasive ductal carcinoma components were small and focal. Margins were negative. Her sentinel lymph node biopsy was also negative. 2. Abdominal Pain. LUQ x 6 weeks approximately. she informs me that she initially though was part of recovery from the biopsy. Pain has worsened in the last couple weeks. Coupled with mild AST elevation we will order Complete abdominal U/S with Doppler. 3. Pain similar to impinged nerve. more prominent on left hips, popliteal, ankle, and left leg. patient to have a visit with PT today for some alleviating exercise . patient reported pain relieve after PT today. 4. Hyperpigmented fingernails, and Onychomycosis of toenails. s/p taxol, antifungal OTC prescribed today. we will continue to monitor progress. 5. Obesity. BM>35%. patient to continue to exercise at least 30-445 minutes walk per day, and to include a fruit and vegetable diet as she continues to work on loosing weight. CHRONIC Written history to indicate a possible "hole" in her esophagus in 2009 and 2014 PLAN #1 U/S abdominal component.+Doppler Includes spleen, liver,kidney and bladder #2 Cbc with diff, CMP, Mag, uric acid #3 OTC antifungal, apply TID on clean toenails and let to dry for a minimum of 2 hours #4 Patient may use evening primrose oil, to alleviate with hot flashes. #5. Patient to have Physical therapy at center, and continue exercise at home, patient to walk for 30-45 minutes daily. #6 RTC per protocol with labs. and imaging results. Education, patient instructed to go to ER immediately and or call Clinic if any Shortness of Breath, Temp >/=100.4, fevers, chills, cardiac type chest pain, bleeding, excessive bruising, headaches, blurry vision, dizziness, abdominal pain, difficulty swallowing, and pain unrelieved by medication. TIME SPENT: 45 minutes 40 > minutes includes but not limited to discussion, counselling and co-ordination~ of care. Discussion with other health care providers, record review, review of lab work, diagnostic tests. Plan discussed extensively with patient. All the questions answered today. Thank you for the opportunity to be involved in the care of Balaji Sidhu. Billing Level: Return visit 5 EMANUEL MCDERMOTT, ONC Jan 20, 2018 12:09
[2018-01-20 12:24] LABS: PLATELET COUNT, AUTOMATED 381 K/uL (150-450)
== END 2018-01-25 ==
LOC: ONC 10:30
PROVIDERS: ATTEND Internal Medicine Medical Oncology
DX: C50.911 Malignant neoplasm of unspecified site of right female breast (principal); Z17.0 Estrogen receptor positive status [ER+]; Z92.21 Personal history of antineoplastic chemotherapy; R53.83 Other fatigue
CPT/HCPCS: 36415; 83735; 84550; 85025; 96523; G0463; J1642; 82040; 82247; 82310; 82374; 82435; 82565; 82947; 84075; 84132; 84155; 84295; 84450; 84460; 84520; 99212

== ENCOUNTER 2018-02-24 12:58 | Outpatient (RCR) | payer MEDICAID ==
--- NOTE | 2018-02-24 11:13 | RADIOLOGY IMAGING REPORT ---
[place] [facility] [place] N[place]um Carpio : 1975 MR: [id number] V: [id number] EXAM DATE: ORDERING PHYSICIAN: RADHA LONDON TECHNOLOGIST: Location: [facility] [place] Patient: Nahum Carpio : 1975 Visit/Account:[id number] Date of Sevice: 02/24/2018 ABDOMEN COMPLETE HISTORY: Left upper quadrant swelling. COMPARISON: CT dated March 23, 2017. FINDINGS: Liver: Negative. Gallbladder: Unremarkable; no stones or sludge. Common duct: Normal, 2-3 mm diameter. Pancreas: Partially obscured by bowel, visualized aspects unremarkable. Spleen: Negative. Kidneys: Negative. Upper abdominal aorta and IVC: Patent. Ascites: None visualized. IMPRESSION: Negative exam. No sonographic abnormalities identified within the abdomen. Report Dictated By: Leandro Castellano MD at 02/24/2018 11:08 AM Report E-Signed By: Leandro Castellano MD at 02/24/2018 11:09 AM WSN:[id number]
[2018-02-24 12:58] VITALS: BP 100/69
[~2018-02-24 12:58] MED LIST changes: -ALTEPLASE RECOMB 2 MG VIAL IVP PRN; -DEXTROSE 5%(*) 100 ML BAG 100 ML IVPB PRN; -HEPARIN FLSH (PORT) 500 UN/5ML IVP PRN; -LIDOCAINE/SOD BICARB 8.4% SYR ID PRN; -NS(*) 0.9% 100 ML BAG 100 ML IVPB PRN; -NS(*) 0.9% 500 ML BAG 500 ML IV PRN; -WATER FOR INJ,STERILE 20 ML IVP PRN
--- NOTE | 2018-02-24 14:11 | Oncology Progress Note ---
History of Present Illness Evaluation Evaluation Date: Feb 24, 2018 Evaluation Time: 13:00 Accompanied by Accompanied by: Daughter, 8 year old son, and 4 year old grandaughter. 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 a. Initial breast imaging in [place], [place] for palpable lump in right breast. b. Bilateral diagnostic mammogram and whole right breast ultrasound performed on February 19. Mammogram shows scattered fibroglandular tissue in multiple groups of suspicious microcalcifications involving the entire upper/outer quadrant of the right breast. Ultrasound of the right breast reveals, amongst other findings, a lobular, solid, vascular mass measuring about 4 cm from the nipple with multiple punctate echogenic foci consistent with calcifications. This finding was highly suspicious for malignancy. Also, 3 cm from the nipple at 10 o'clock there was a complex solid nodule. At 11 o'clock, about 1 cm from the nipple there was a lobular vascular oval mass. c. March 01: Breast MRI reveals areas of ductal enhancement consistent with adenosis of the left breast as well as multiple benign cystic lesions. There was extensive involvement of the right breast from approximately 8 to 11 o'clock with suspicious enhancement highly suggestive of diffuse malignancy. This area extended from the chest wall to the retroareolar region. There was no evidence of adenopathy in the axillary regions. There was contrast enhancement extending to the chest wall, but no definitive chest wall invasion as detected. d. February 27: Patient subsequently undergoes biopsies of two separate areas of the right breast. First biopsy consistent with invasive ductal carcinoma, moderately or poorly differentiated (grade 3/3), 3 mm in greatest dimension with extensive intermediate grade DCIS, solid type with necrosis and microcalcification. 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 e. March 23: Bone scan reveals relatively diffuse sternal and manubrial localization that is likely reactive or inflammatory in nature; no definite osseous metastatic pattern. f. February 20: CT scan of chest, abdomen and pelvis reveals at least four noncalcified pulmonary nodules seen in the lungs, with largest measuring 6 mm in diameter. Possible noncalcified granulomas; there are small calcified mediastinal lymph nodes. Right breast masses were noted consistent with her history of breast cancer. 8 mm round hypoattenuating lesion in the medial segment of the left lobe of the liver which is too small to characterize. Sclerosis along left-sided L5 vertebral body which could be degenerative, as a mildly bulging disk was present at this level. g. MRI abdomen reveals that the 8 mm hypoattenuating lesion on CT is consistent with a cyst. h. Oncotype DX testing has returned with a recurrence score of 10. BRCA1 and 2 currently pending. i. Patient is status post dose dense AC. j. Patient completes weekly Taxol infusions (12 cycles total). k. September 17, 2017: Patient undergoes bilateral mastectomies with right axillary sentinel lymph node biopsy. Pathology from right mastectomy reveals infiltrating ductal carcinoma, grade 2, with areas of invasive carcinoma that are minute and focal. The area of DCIS measures 1.3 x 0.9 x 0.9 cm. The DCIS measures 4 mm away from the lateral surgical margin. Extensive areas of intermediate grade ductal carcinoma in situ are seen. Lymphovascular invasion was negative. [place] lymph node biopsy was negative. - Left breast revealed some ductal hyperplasia and fibrocystic change with microcalcifications. - Tissue from right breast revealed estrogen receptor positivity at 94.4%, and progesterone receptor positivity. HER2/grecia is not overexpressed, and Ki-67 was 3%. l. BRCA1 and 2 testing is negative from March 18, 2017. Treatment Treatment 2017 Patient completes weekly Taxol infusions (12 cycles total). - September 17, 2017: Patient undergoes bilateral mastectomies with right axillary sentinel lymph node biopsy. Pathology from right mastectomy reveals infiltrating ductal carcinoma, grade 2, with areas of invasive carcinoma that are minute and focal 12/2017 Port removal. 12/10/2017 Patient Initiates Tamoxifen 20mg PO Daily. HPI HPI Mrs. Balaji Sidhu is a 42 year old woman who has Multicentric ER/RI positive high grade right breast cancer. She initiated Tamoxifen 20mg PO daily (12/10/2017). s/p Taxol infusions (12 cycles total) and bilateral mastectomies with right axillary sentinel lymph node biopsy (09/17/2017). Patient presents to the cancer center today accompany by her family to follow-up on her treatment. She reports being in her usual state of health. She reports improvement on frequency on hot flashes. On our last visit there LUQ with bulging fluid collection type from beneath the left posterior costal margin has improved, less swelling, and less painful. We did an U/S today of abdomen ( negative findings).with a pain level of 2 (0-10 scale). surgical site clean dry intact, healed nicely, with no signs of infections. minimal numbness remains to the left breast site. 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 No bruits on auscultation of the abdomen, normal bowel sounds. No fevers, chills, night sweats, bruising, SOB, no cardiac type chest pain, no edema, no SOB, no changes in bowel or bladder pattern. Significant past medical history of written history to indicate a possible "hole" in her esophagus in 2009 and Social/Occupational History Social History: Social History This is a 42 Yr old White female, she is U Unknown and has [] Children Hx Smoking: No Smoking Status: Never Smoker Exposure to Second Hand Smoke?: No Allergies & Medications Allergies: Coded Allergies: No Known Drug Allergies (Unverified , 09/14/17) Home Meds Reported Medications Tamoxifen Citrate (TAMOXIFEN CITRATE) 20 Mg Tablet, 20 MG PO DAILY Start Date: 01/18/18 Ibuprofen (IBUPROFEN) 200 Mg Capsule, 1 CAP PO PRN for PAIN, CAPSULE 12/09/17 Review of Systems Constitution: Denies Appetite/Weight Change, Denies Fever/Chills/Sweating, Denies Recent Infection, Denies Other HEENT: No EARS: Tinnitus, No NOSE: Nasal Discharge, No THROAT: Sore Throat, No EYES: Dipolpia, No EARS: Hearing Problems, No NOSE: Epistaxis, No THROAT: Mouth Ulcers, No EYES: Vision Change, No OTHER Respiratory: No Cough, No Expectoration, No Hemoptysis, No Shortness of Breath, No OTHER Cardiovascular: No Chest Pain, No Orthopnea, No Edema, No Palpitations, No OTHER Gastrointestinal: Heart Burn, Abdominal Pain Gentiourinary: No Hematuria, No Dysuria, No Nocturia, No Other Musculoskeletal: Muscle Pain Hematological: No Bleeding, No Weakness, No Enlarged Lyph Nodes, No Bruising, No Fatigue, No Other Skin: Dry Skin, Moist Skin Psychiatric: Anxiety Vital Signs Vital Signs Temperature: 97.1 Pulse: 66 BP Systolic: 100 BP Diastolic: 69 Respiratory Rate: 16 O2 SAT: 98 O2 Delivery: Height (feet) Height (inches) 64.00 Weight lb: 186 Weight oz: Weight Kg (Antonino): [id number] Pain: 0 Physical Exam General: Looks Stable, Well Developed, Well Nourished HEENT: HEAD:Atraumatic Neck: Supple Lungs: Clear to Auscultation, Percussion Bilaterally Heart: Regular Rate and Rhythm Abdomen: Hepatosplenomegaly Psychiatric: Mood appears normal, Affect appears normal Skin: No Skin Rashes, No Bruising, No Purpura, No Moist Desquamation, No Dry Desquamation, No Errythema, No Mild Errythema, No Moderate Errythema, No Severe Errythema, No Induration; Other (bilateral breast surgical scar) Breast: Other (s/p bilateral mastectomy. no s/s infections.) Assessment and Plan Assessment and Plan Mrs. Balaji Sidhu is a 42 year old woman who has Multicentric ER/RI positive high grade right breast cancer. currently on Tamoxifen 20mg PO daily (12/10/2017). s/p Taxol infusions (12 cycles total) and bilateral mastectomies with right axillary sentinel lymph node biopsy (09/17/2017). Patient presents to the cancer center today accompany by her family to follow-up on her treatment. She reports being in her usual state of health. She reports improvement on frequency on hot flashes. On our last visit there LUQ with bulging fluid collection type from beneath the left posterior costal margin has improved, less swelling, and less painful. We did an U/S today of abdomen ( negative findings).with a pain level of 2 (0-10 scale). surgical site clean dry intact, healed nicely, with no signs of infections. minimal numbness remains to the left breast site. 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 No bruits on auscultation of the abdomen, normal bowel sounds. No fevers, chills, night sweats, bruising, SOB, no cardiac type chest pain, no edema, no SOB, no changes in bowel or bladder pattern. Significant past medical history of written history to indicate a possible "hole" in her esophagus in 2009 and 2014. DIAGNOSTIC DATA 01/20/2018 CBC,CMP within normal limits except AST is 36 1. Multicentric ER positive right breast cancer. Nahum has now completed neoadjuvant chemotherapy, as well as bilateral mastectomies. and initiated tamoxifen on 12/10/2017. tolerating very well, with minor hot flashes daily. prior BRCA1 and 2 testing was negative. her surgical pathology report. There was extensive DCIS noted within the right breast, but invasive ductal carcinoma components were small and focal. Margins were negative. Her sentinel lymph node biopsy was also negative. 2. Abdominal Pain. LUQ x since after mastectomy surgery. improving Pain has wor sened in the last couple weeks. Coupled with mild AST elevation we will order Complete abdominal U/S with Doppler. 3. Pain similar to impinged nerve. improved with exercised and Physical therapy. more prominent on left hips, popliteal, ankle, and left leg. patient to have a visit with PT today for some alleviating exercise . patient reported pain relieve after PT today. 4. Hyperpigmented fingernails, and Onychomycosis of toenails. resolving. s/p taxol, antifungal OTC prescribed today. we will continue to monitor progress. 5. Obesity. BM>35%. patient to continue to exercise at least 30-445 minutes walk per day, and to include a fruit and vegetable diet as she continues to work on loosing weight. 6. BV. reports heavy vaginal discharge, on and off. terconazole vagina, and fluconazole systemic ppfx prescribed today. CHRONIC Written history to indicate a possible "hole" in her esophagus in 2009 and 2014 PLAN #1We willl monitor LUQ and pain level, and keep a tight eye on it. if symptoms worsened, we may order a CT chest #2 Cbc with diff, CMP, Mag, uric acid #3 Rx given for terconazole vaginal and fluconazole 400mg Po x 7 days today for BV. 30 pills dispensed with one refill. #4 Patient may use evening primrose oil, to alleviate with hot flashes. #5. Patient to have Physical therapy at center, and continue exercise at home, fat free diet, patient to walk for 30-45 minutes daily. #6. Follow up with Dr. Khan/ANTONETTE on 05/25/2018 approximately. #7. RTC per protocol with labs. and imaging results. Education, patient instructed to go to ER immediately and or call Clinic if any Shortness of Breath, Temp >/=100.4, fevers, chills, cardiac type chest pain, bleeding, excessive bruising, headaches, blurry vision, dizziness, abdominal pain, difficulty swallowing, and pain unrelieved by medication. TIME SPENT: 20 minutes 15 > minutes includes but not limited to discussion, counselling and co-ordination~ of care. Discussion with other health care providers, record review, review of lab work, diagnostic tests. Plan discussed extensively with patient. All the questions answered today. Thank you for the opportunity to be involved in the care of Balaji Sidhu. Billing Level: Return visit 3 EMANUEL MCDERMOTT, ONC Feb 24, 2018 14:11
== END 2018-05-05 10:15 | disposition home or self-care (01) ==
LOC: ONC 12:58
PROVIDERS: ATTEND Internal Medicine Medical Oncology
DX: C50.911 Malignant neoplasm of unspecified site of right female breast (principal); Z17.0 Estrogen receptor positive status [ER+]; Z92.21 Personal history of antineoplastic chemotherapy; R53.83 Other fatigue
CPT/HCPCS: 76700; G0463; 99212

== ENCOUNTER → 2018-12-14 | Outpatient (CLI) | payer MEDICAID ==
--- NOTE | 2018-12-14 14:13 | RADIOLOGY IMAGING REPORT ---
FACILITY: [facility] - [place] PATIENT NAME: Nahum Carpio : 1975 MR: [id number] V: [id number] EXAM DATE: ORDERING PHYSICIAN: RADHA LONDON TECHNOLOGIST: Location: [facility] [place] Patient: Nahum Carpio : 1975 Visit/Account:[id number] Date of Sevice: 12/14/2018 ABDOMEN COMPLETE HISTORY: Left upper quadrant pain with nausea COMPARISON: Ultrasound abdomen 02/24/2018 FINDINGS: Liver: Negative. Gallbladder: Unremarkable; no stones or sludge. Common duct: Normal, 2.8 mm diameter. Pancreas: Partially obscured by bowel, visualized aspects unremarkable. Spleen: Negative. Kidneys: Right: 10.07 cm in length. There is no mass, hydronephrosis, or calculus. Normal cortical m edullary echotexture is seen. Left: 10.43 cm in length. There is no mass, hydronephrosis, or calculus. Normal cor tical medullary echotexture is seen. Upper abdominal aorta and IVC: Patent. IMPRESSION: Normal ultrasound abdomen complete. Report Dictated By: Garett Escobar at 12/14/2018 2:07 PM Report E-Signed By: Garett Escboar at 12/14/2018 2:10 PM WSN:[id number]
== END ==
LOC: RAD 12:44
PROVIDERS: ATTEND Internal Medicine Medical Oncology
DX: R10.11 Right upper quadrant pain (principal)
CPT/HCPCS: 76700